=== PATIENT | male | born 1965 | race Caucasian/White ===

== ENCOUNTER 2019-09-13 15:33 | Outpatient (CLI) | payer MEDICARE, SELFPAY ==
[2019-09-13 15:58] LABS: Add Urine Microscopic? YES; Appearance Urine Clear (Clear); Bilirubin Urine Negative (Negative); Blood Urine Negative (Negative); Color Urine Straw (Yellow); Glucose Urine UA Negative (Negative); Ketones Urine Negative (Negative); Leukocyte Esterase Ur 1+ LEU/UL (NEGATIVE); Nitrate Urine Negative (Negative); Protein Urine Negative (Negative); RBC Urine 0-2 /hpf (0-2); Specific Grav Ur 1.011 (1.001-1.035); Squamous Epithelial Cell Urine Occasional /hpf (Few); Urobilinogen Urine Negative mg/dL (<2.0)
== END 2019-09-13 15:34 | disposition home or self-care (01) ==
LOC: ANHLAB 15:36
PROVIDERS: PCP Family Medicine; Visit Provider Family Medicine
DX: N39.0 Urinary tract infection, site not specified (principal)
CPT/HCPCS: 81001; 87086; 87088

== ENCOUNTER 2020-05-01 14:02 | Outpatient (CLI) | payer MEDICARE, SELFPAY ==
[2020-05-01 14:52] LABS: Basophils Percent Auto 0.8 % (0.2-1.2); Eosinophils Absolute Auto 0.2 K/mm3 (0-0.3); Hematocrit 35.6 % (42.0-52.0); Hemoglobin 10.8 g/dL (14.0-18.0); Immature Granulocyte Absolute 0.01 K/mm3 (0.00-0.031); Immature Granulocyte Percent A 0.2 % (0-0.5); Lymphocytes Percent Auto 29.2 % (18.3-44.2); Mean Corpuscular HGB Conc 30.3 g/dl (32-36); Mean Corpuscular Hemoglobin 25.2 pg (26-34); Mean Platelet Volume 10.3 fl (7.4-10.4); Monocytes Absolute Auto 0.6 K/mm3 (0.1-0.6); Monocytes Percent Auto 13.1 % (2.6-8.5); Neutrophils Absolute Auto 2.5 K/mm3 (1.3-6.7); Neutrophils Percent Auto 51.7 % (45.5-73.1); Platelet Count Result 276 k/mm3 (150-375); Red Blood Count 4.29 M/mm3 (4.6-6.20); Red Cell Distribution Width 13.4 % (11.5-14.5); White Blood Count 4.8 K/mm3 (4.5-10.0)
[2020-05-01 14:59] LABS: Alanine Aminotransferase 18 U/L (4-50); Alkaline Phosphatase 89 U/L (38-126); Anion Gap 7 mmol/L (8-16); Aspartate Amino Transferase 25 U/L (17-59); Bilirubin,Total 0.2 mg/dL (0.2-1.3); Blood Urea Nitrogen 14 mg/dL (9-20); Calcium 9.5 mg/dL (8.4-10.2); Carbon Dioxide 33 mmol/L (22-30); Chloride 102 mmol/L (98-107); Cholesterol 159 mg/dL (0-200); Estimated Glomerular Filt Rate > 60; Glucose 95 mg/dL (75-110); HDL Direct 33 mg/dL; Potassium 4.2 mmol/L (3.4-5.0); Sodium 142 mmol/L (137-145); Triglycerides 106 mg/dL (<150)
[2020-05-01 15:10] LABS: LDL Cholesterol Direct 102 mg/dL
== END 2020-05-01 14:03 | disposition home or self-care (01) ==
PROVIDERS: PCP Family Medicine; Visit Provider Physician Assistant
DX: J45.909 Unspecified asthma, uncomplicated (principal); K21.9 Gastro-esophageal reflux disease without esophagitis; D64.9 Anemia, unspecified; E78.2 Mixed hyperlipidemia
CPT/HCPCS: 36415; 80053; 80061; 85025

== ENCOUNTER 2020-05-31 15:11 | Outpatient (CLI) | payer MEDICARE, SELFPAY ==
--- NOTE | ~2020-05-31 | XR_ITS ---
XR chest 2V 05/31/2020 15:33 Indication: Cough for one week. Shortness of breath. Procedure: 2 view chest Comparison: No prior studies for comparison. Findings: Heart size normal. Moderate size hiatal hernia. There are linear infiltrates of the right m iddle lobe. No peripheral consolidation, pleural effusion or pneumothorax. The lungs are hyperinflate d which is consistent with, but not diagnostic of chronic obstructive pulmonary disease. There are coates rgical fusion changes of the midthoracic spine. Impression: 1: Linear infiltrates of the right middle lobe, most likely atelectasis/scarring. 2: Moderate size hiatal hernia. Reviewed, dictated and finalized at location A. Impression: 1: Linear infiltrates of the right middle lobe, most likely atelectasis/scarrin g. 2: Moderate size hiatal hernia.
== END 2020-05-31 15:12 | disposition home or self-care (01) ==
PROVIDERS: PCP Family Medicine; Visit Provider Family Medicine
DX: R05 Cough (principal); K44.9 Diaphragmatic hernia without obstruction or gangrene; R91.8 Other nonspecific abnormal finding of lung field
CPT/HCPCS: 71046

== ENCOUNTER 2020-06-03 06:52 | Outpatient (NON) | payer MEDICARE, SELFPAY ==
[2020-06-05 18:20] LABS: SARS-CoV-2 RNA PCR Positive
== END 2020-06-03 06:53 ==
PROVIDERS: PCP Family Medicine; Visit Provider Family Medicine
DX: U07.1 COVID-19 (principal)
CPT/HCPCS: 87635; C9803; U0003

== ENCOUNTER 2021-04-23 16:51 | Outpatient (CLI) | payer OTHER, SELFPAY ==
[2021-04-23 18:17] LABS: Add Urine Microscopic? YES; Appearance Urine Clear (Clear); Bilirubin Urine Negative (Negative); Blood Urine Negative (Negative); Color Urine Yellow (Yellow); Glucose Urine UA Negative (Negative); Ketones Urine Negative (Negative); Leukocyte Esterase Ur Trace LEU/UL (Negative); Nitrate Urine Negative (Negative); Protein Urine Negative (Negative); RBC Urine 0-2 /hpf (0-2); Specific Grav Ur 1.016 (1.001-1.035); Squamous Epithelial Cell Urine Occasional /hpf (Few); Urobilinogen Urine Negative mg/dL (<2.0)
== END 2021-04-23 16:52 | disposition home or self-care (01) ==
LOC: ANHLAB 16:53
PROVIDERS: PCP Family Medicine; Visit Provider Family Medicine
DX: R35.0 Frequency of micturition (principal); R30.0 Dysuria
CPT/HCPCS: 81001; 87086; 87088

== ENCOUNTER 2021-05-23 16:00 | Outpatient (CLI) | payer OTHER, SELFPAY ==
[2021-05-23 16:30] LABS: Basophils Percent Auto 0.6 % (0.2-1.2); Eosinophils Absolute Auto 0.3 K/mm3 (0-0.3); Eosinophils Percent Auto 5.3 % (0-4.4); Hematocrit 34.1 % (42.0-52.0); Hemoglobin 9.8 g/dL (14.0-18.0); Immature Granulocyte Absolute 0.01 K/mm3 (0.00-0.031); Immature Granulocyte Percent A 0.2 % (0-0.5); Lymphocytes Absolute Auto 1.82 K/mm3 (0.9-3.2); Lymphocytes Percent Auto 38.4 % (18.3-44.2); Mean Corpuscular HGB Conc 28.7 g/dl (32-36); Mean Corpuscular Hemoglobin 22.7 pg (26-34); Mean Corpuscular Volume 79.1 fl (80-100); Mean Platelet Volume 10.3 fl (7.4-10.4); Monocytes Absolute Auto 0.5 K/mm3 (0.1-0.6); Monocytes Percent Auto 9.5 % (2.6-8.5); Neutrophils Absolute Auto 2.2 K/mm3 (1.3-6.7); Platelet Count Result 279 k/mm3 (150-375); Red Blood Count 4.31 M/mm3 (4.6-6.20); Red Cell Distribution Width 15.3 % (11.5-14.5); White Blood Count 4.7 K/mm3 (4.5-10.0)
[2021-05-23 16:39] LABS: Add Urine Microscopic? YES; Appearance Urine Clear (Clear); Bilirubin Urine Negative (Negative); Color Urine Straw (Yellow); Glucose Urine UA Negative (Negative); Ketones Urine Negative (Negative); Leukocyte Esterase Ur 3+ LEU/UL (Negative); Nitrate Urine Negative (Negative); Protein Urine Negative (Negative); Specific Grav Ur 1.011 (1.001-1.035); Squamous Epithelial Cell Urine Few /hpf (Few); Urobilinogen Urine Negative mg/dL (<2.0); WBC Urine 51-75 /hpf
[2021-05-23 16:40] LABS: Blood Urine Negative (Negative)
[2021-05-23 16:47] LABS: Alanine Aminotransferase 16 U/L (4-50); Albumin Level 3.9 g/dL (3.5-5.1); Alkaline Phosphatase 92 U/L (38-126); Anion Gap 7 mmol/L (8-16); Aspartate Amino Transferase 25 U/L (17-59); Bilirubin,Total 0.3 mg/dL (0.2-1.3); Blood Urea Nitrogen 15 mg/dL (9-20); Calcium 9.1 mg/dL (8.4-10.2); Carbon Dioxide 30 mmol/L (22-30); Chloride 104 mmol/L (98-107); Cholesterol 171 mg/dL (0-200); Estimated Glomerular Filt Rate > 60; Glucose 89 mg/dL (65-110); HDL Direct 35 mg/dL; Potassium 3.8 mmol/L (3.4-5.0); Sodium 141 mmol/L (137-145); Triglycerides 103 mg/dL (<150)
[2021-05-23 16:58] LABS: LDL Cholesterol Direct 97 mg/dL
[2021-05-23 17:17] LABS: Prostate Specific Antigen 0.8 ng/mL (< OR = 4.0)
== END 2021-05-23 16:01 | disposition home or self-care (01) ==
PROVIDERS: PCP Family Medicine; Visit Provider Physician Assistant
DX: R30.0 Dysuria (principal); I10 Essential (primary) hypertension; R35.0 Frequency of micturition; R35.1 Nocturia; Z13.220 Encounter for screening for lipoid disorders; D64.9 Anemia, unspecified; K21.9 Gastro-esophageal reflux disease without esophagitis
CPT/HCPCS: 36415; 80053; 80061; 81001; 84153; 85025; 87077; 87086; 87088; 87186

== ENCOUNTER → 2021-05-30 08:35 | Outpatient (CLI) | payer OTHER, SELFPAY ==
--- NOTE | ~2021-05-30 | CT_ITS ---
EXAMINATION: CT abdomen pelvis wo con EXAM DATE: 05/30/2021 09:05 INDICATION: R30.0 - Dysuria . TECHNIQUE: Spiral CT of the abdomen and pelvis was performed without contrast. Axial, coronal and s agittal images of the abdomen and pelvis were reviewed. The dose-length product (DLP) for this exami nation was 1001.16 mGy-cm. The exposure was tailored according to patient size (auto mA exposure con trol), and iterative reconstruction (ASIR) was used as additional dose reduction technique. There is no prior study for comparison. FINDINGS: The liver, spleen, adrenal glands and pancreas are unremarkable. Gallbladder is unremark able. No biliary obstruction. There is no nephrolithiasis or hydronephrosis. The prostate is unre markable. The bladder is unremarkable. There is no retroperitoneal or pelvic lymphadenopathy. Tin y umbilical fat-containing hernia. IVC filter, collapsed IVC below this. The appendix is normal. There is moderate-sized gastroesophageal hiatal hernia. There is expected a mount of colonic stool. No free intraperitoneal gas. The heart is normal in size. There are no p ericardial or pleural effusions. The lung bases are unremarkable. Large expansile region to the rig ht iliac bone anteriorly measuring about 7 cm, smaller region of the left iliac bone and of the proxi mal femoral diaphyses bilaterally. 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 Mild lumbar levoscoliosis. Right hip joint effusion. IMPRESSION: 1. No acute intra-abdominal findings. Unremarkable genitourinary system. 2. 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 3. Moderate hiatal hernia. Reviewed, dictated and finalized at location B.
== END ==
PROVIDERS: PCP Family Medicine; Visit Provider Physician Assistant
DX: R30.0 Dysuria (principal); R35.0 Frequency of micturition; N31.2 Flaccid neuropathic bladder, not elsewhere classified; R14.0 Abdominal distension (gaseous); K44.9 Diaphragmatic hernia without obstruction or gangrene
CPT/HCPCS: 74176

== ENCOUNTER → 2021-08-05 02:31 | Outpatient (CLI) | payer OTHER, SELFPAY ==
[2021-08-05 20:10] LABS: SARS-CoV-2 RNA PCR Positive
== END ==
PROVIDERS: PCP Family Medicine; Visit Provider Internal Medicine Gastroenterology
DX: Z01.812 Encounter for preprocedural laboratory examination (principal); Z20.822 Contact with and (suspected) exposure to COVID-19
CPT/HCPCS: C9803; U0003; U0005

== ENCOUNTER 2021-09-11 10:15 | Day surgery (SDC) | payer OTHER, SELFPAY ==
[2021-07-21 15:25] VITALS: BMI 29.5
[2021-09-09 14:09] VITALS: BMI 29.5
[2021-09-11 10:43] VITALS: BP 124/73; PULSE 81; RESP 18; TEMP 36.6; O2SAT 100
[2021-09-11] MEDS: LACTATED RINGERS 1,000 ML 150 ML IV CONT (10:52)
--- NOTE | 2021-09-11 10:58 | WPDGICN ---
Assessment and Plan Assessment and plan (1) Iron deficiency anemia: Code(s): D50.9 - Iron deficiency anemia, unspecified Status: Acute Assessment and Plan: EGD with possible biopsy or dilatation or cautery.Colonoscopy with possible biopsy or polypectomy or cautery or injection of substances. (2) Presence of IVC filter: Code(s): Z95.828 - Presence of other vascular implants and grafts Status: Acute Assessment and Plan: history of DVTs. Not currently anticoagulated (3) Paraplegia following spinal cord injury: Code(s): G82.20 - Paraplegia, unspecified Status: Acute Assessment and Plan: accident 13 years ago (4) COVID-19: Code(s): U07.1 - COVID-19 Status: Acute Assessment and Plan: developing COVID forced him to cancel his last procedure. He has fully recovered. COVID RNA was positive in June and again on August 05 GI Consult Note Consult date/time: 09/11/21 10:58 HPI: Esvin Miller is a 56 year old male known paraplegic who has become progressively anemic. He had hemoglobin of 12 2 years ago. In April of 2020 it was 10.8, and last May it was 9.8. MCV is also somewhat low at 79. he had a colonoscopy and polypectomy about 6 or 7 years ago. There has been no obvious bleeding. He has been paraplegic since an accident 13 years ago. He has been on oral iron almost continuously since then. He is not aware of any family history of anemia or gastrointestinal diseases. He does not take NSAIDs regularly. He has had several bouts of urinary tract infections. Recently, when he was scheduled for this procedure, he developed COVID Review of Systems Review of Systems: All systems reviewed & are unremarkable except as noted in HPI and below PMFSH Past Medical History Medical History Asthma Atonic neurogenic bladder Chronic anemia Chronic wound of extremity Dry skin dermatitis DVT (deep venous thrombosis) RLE Exostosis of femur GERD (gastroesophageal reflux disease) Muscle spasms of both lower extremities Other fracture of t5-T6 vertebra, sequela Paraplegia at T4 level Paraplegia following spinal cord injury Pathological fracture, right femur, subsequent encounter for fracture with malunion Presence of IVC filter Recent surgical procedure on lower extremity Recurrent UTI Ulcers of both lower extremities Family History Family History Other Family history of gout Hypertension Social History Social History Social History: Smoking status: Never smoker Second hand tobacco smoke exposure: No Alcohol intake: current Drinks per week: 1 Alcohol use details: occasionally Substance use: current Substance use type: marijuana Living arrangements: with family Occupation/Education: unemployed Additional occupation/education comments: Disabled Gender identity (if verbalized by the patient): Male Sexual Orientation (if Verbalized by the Patient): Straight or Heterosexual Spiritual care concerns: No Meds Home Medications and Allergies Home Medications Medication Instructions Recorded Confirmed Type sennosides-docusate sodium 1 tablet PO BID PRN 06/01/19 08/19/21 History pregabalin 100 mg capsule 200 mg PO TID cap 08/25/19 08/19/21 History azelastine 137 mcg (0.1 %) nasal 137 mcg NASAL Q12H #30 ml 09/29/19 08/19/21 Rx spray aerosol diazepam 5 mg tablet 5 mg PO BID PRN 05/01/20 08/19/21 History furosemide 20 mg tablet 20 mg PO DAILY #90 tablet 10/29/20 08/19/21 Rx polysaccharide iron complex 150 mg See Rx Instructions .ROUTE 06/23/21 08/19/21 Rx iron capsule .COMPLEX #60 cap tolterodine 4 mg capsule,extended 4 mg PO DAILY #90 cap 08/19/21 09/09/21 Rx release 24 hr budesonide-formoterol HFA 160 2 puff INHALATION Q12H #10
--- NOTE | 2021-09-11 11:13 | WPDANESEPPF ---
Anes - Initial Pre Proc Eval Procedure: Operation Date: 09/11/21 12:00 Proposed Procedures p Esophagogastroduodenoscopy & Colonoscopy - Ashish Shoemaker MD Date/Time: 09/11/21 11:13 Surgeon: Ashish Shoemaker MD Pre Op Diagnosis: anemia Patient Data Age: 56 Gender: M Height: 1.88 m Weight: 106 kg Last Vital Signs Temp 97.9 F 09/11/21 10:43 Pulse 81 09/11/21 10:43 Resp 18 09/11/21 10:43 BP 124/73 09/11/21 10:43 Pulse Ox 100 09/11/21 10:43 Allergies Allergy/AdvReac Type Severity Reaction Status Date / Time aspirin Allergy Mild SOB Verified 09/11/21 10:41 Sulfa (Sulfonamide Allergy Mild hives Verified 09/11/21 10:41 Antibiotics) latex AdvReac Rash Verified 09/11/21 10:41 Home Medications Medication Instructions Recorded Confirmed Type sennosides-docusate sodium 1 tablet PO BID PRN 06/01/19 08/19/21 History pregabalin 100 mg capsule 200 mg PO TID cap 08/25/19 08/19/21 History azelastine 137 mcg (0.1 %) nasal 137 mcg NASAL Q12H #30 ml 09/29/19 08/19/21 Rx spray aerosol diazepam 5 mg tablet 5 mg PO BID PRN 05/01/20 08/19/21 History furosemide 20 mg tablet 20 mg PO DAILY #90 tablet 10/29/20 08/19/21 Rx polysaccharide iron complex 150 mg See Rx Instructions .ROUTE 06/23/21 08/19/21 Rx iron capsule .COMPLEX #60 cap tolterodine 4 mg capsule,extended 4 mg PO DAILY #90 cap 08/19/21 09/09/21 Rx release 24 hr budesonide-formoterol HFA 160 2 puff INHALATION Q12H #10.2 g 09/03/21 09/09/21 Rx mcg-4.5 mcg/actuation aerosol inhaler Patient hx anesthesia problems: none Family hx anesthesia problems: none Results Review: All pre-operative results and documents have been reviewed as part of the pre-operative evaluation. [facility] Past Medical History Medical History Asthma Atonic neurogenic bladder Chronic anemia Chronic wound of extremity Dry skin dermatitis DVT (deep venous thrombosis) RLE Exostosis of femur GERD (gastroesophageal reflux disease) Muscle spasms of both lower extremities Other fracture of t5-T6 vertebra, sequela Paraplegia at T4 level Paraplegia following spinal cord injury Pathological fracture, right femur, subsequent encounter for fracture with malunion Presence of IVC filter Recent surgical procedure on lower extremity Recurrent UTI Ulcers of both lower extremities Family History Family History Other Family history of gout Hypertension Social History Social History (Updated 08/19/21 @ 15:05 by Jossy Garcia) Social History: Smoking status: Never smoker Second hand tobacco smoke exposure: No Alcohol intake: current Drinks per week: 1 Alcohol use details: occasionally Substance use: current Substance use type: marijuana Living arrangements: with family Occupation/Education: unemployed Additional occupation/education comments: Disabled Gender identity (if verbalized by the patient): Male Sexual Orientation (if Verbalized by the Patient): Straight or Heterosexual Spiritual care concerns: No Anes - Eval Final PreProcedure Day of Procedure 09/11/21 11:13 Patient weight: obese Heart: regular rate and rhythm Lungs: clear to auscultation Airway: Mallampati scale class II Neurological: alert and oriented Last oral intake: >/= 8 hours ASA classification: III Emergent: no Anesthetic plan: proceed Anesthesia type and monitoring: general GIVS and standard monitoring Results Review: All pre-operative results and documents have been reviewed as part of the pre-operative evaluation. Informed Consent: The patient's anesthetic plan and its attendant risks and benefits were discussed with the patient/family/POA. Questions were solicited and answers provided to the satisfaction of the patient/family/POA.
[2021-09-11] MEDS: BENZOCAINE (*SP) 60 ML SPRAY CAN (HURRICAINE) 1 SPRAY MUCOUS MEM (11:44)
--- NOTE | 2021-09-11 12:09 | SUR.OPER ---
EGD end 1157 COLONOSCOPY START 1200
[2021-09-11 12:21] VITALS: BP 118/96; PULSE 64; RESP 17; O2SAT 98
--- NOTE | 2021-09-11 12:29 | PC.NURSE ---
Several pressure ulcers noted. On heels and legs.
[2021-09-11 12:31] VITALS: BP 107/70; PULSE 67; RESP 19; O2SAT 100
[2021-09-11 12:41] VITALS: BP 117/79; PULSE 61; RESP 20; O2SAT 100
== END 2021-09-11 13:12 | disposition home or self-care (01) ==
LOC: ANHENDO 13:42
PROVIDERS: PCP Family Medicine; Visit Provider Internal Medicine Gastroenterology
PROC: 0DJ08ZZ Inspection of Upper Intestinal Tract, Via Natural or Artificial Opening Endoscopic (ICD-10-PCS; CPT 43235; principal; 2021-09-11 12:00)
DX: Z12.11 Encounter for screening for malignant neoplasm of colon (principal); Z86.010 Personal history of colon polyps; D50.9 Iron deficiency anemia, unspecified; K44.9 Diaphragmatic hernia without obstruction or gangrene; K31.7 Polyp of stomach and duodenum; K29.70 Gastritis, unspecified, without bleeding; G82.20 Paraplegia, unspecified; Z95.828 Presence of other vascular implants and grafts; Z86.16 Personal history of COVID-19; J45.909 Unspecified asthma, uncomplicated; Z86.718 Personal history of other venous thrombosis and embolism; D64.9 Anemia, unspecified; K21.9 Gastro-esophageal reflux disease without esophagitis; N39.0 Urinary tract infection, site not specified; F12.90 Cannabis use, unspecified, uncomplicated; E66.9 Obesity, unspecified; Z68.30 Body mass index [BMI] 30.0-30.9, adult
CPT/HCPCS: 43239; 43251; G0105; 87081; 88305; J2704; J7120

== ENCOUNTER 2022-04-24 16:39 | Outpatient (CLI) | payer OTHER, SELFPAY ==
--- NOTE | ~2022-04-24 | XR_ITS ---
XR heel LT min 2V DATE: 04/24/2022 17:01 INDICATION: Open wound TECHNIQUE: Axial and lateral views COMPARISON: 02/20/2019 right foot FINDINGS: There is evidence of a depression in the posterior soft tissues of the heel is an approxima tely 1 cm vertical scalloped defect along the upper posterior aspect of the calcaneus. Consider acute or chronic osteomyelitis, gout. Prominent plantar calcaneal enthesopathy. Tibiotalar osteoarthritis. Osteopenia. IMPRESSION: Soft tissue irregularity along the posterior aspect of the heel. Scalloped or punched-out defect of posterior upper calcaneus; different diagnosis includes acute or c hronic osteomyelitis, gout Plantar calcaneal enthesopathy Osteopenia Osteoarthritis Reviewed, dictated and finalized at location B. IMPRESSION: Soft tissue irregularity along the posterior aspect of the heel. Scalloped or punched-out defect of posterior upper calcaneus; different diagnos is includes acute or chronic osteomyelitis, gout Plantar calcaneal enthesopathy Osteopenia Osteoarthritis
== END 2022-04-24 16:40 | disposition home or self-care (01) ==
PROVIDERS: PCP Family Medicine; Visit Provider Physician Assistant
DX: S91.309A Unspecified open wound, unspecified foot, initial encounter (principal); X58.XXXA Exposure to other specified factors, initial encounter; M77.32 Calcaneal spur, left foot; M85.872 Other specified disorders of bone density and structure, left ankle and foot; M19.072 Primary osteoarthritis, left ankle and foot
CPT/HCPCS: 36415; 73650; 85652; 86140

== ENCOUNTER 2022-04-24 17:07 | Outpatient (CLI) | payer OTHER, SELFPAY ==
[2022-04-24 17:40] LABS: CRP 1.9 mg/dL (<1.0)
[2022-04-24 17:44] LABS: Erythrocyte Sedimentation Rate 87 mm/hr (0-20)
== END 2022-04-24 17:08 | disposition home or self-care (01) ==
LOC: ANHLAB 17:09
PROVIDERS: PCP Family Medicine; Visit Provider Physician Assistant
DX: S91.309A Unspecified open wound, unspecified foot, initial encounter (principal); X58.XXXA Exposure to other specified factors, initial encounter
CPT/HCPCS: 36415; 85652; 86140

== ENCOUNTER 2023-01-22 14:20 | Outpatient (CLI) | payer OTHER, SELFPAY ==
--- NOTE | ~2023-01-22 | XR_ITS ---
XR chest 2V 01/22/2023 14:36 Indication: Shortness of breath Procedure: AP and lateral views of the chest Comparison: 05/31/2020 Findings: Heart size is normal. There is a hiatal hernia. There is right middle lobe atelectasis/scar ring. No focal pneumonia, edema or effusion. No pneumothorax. There are spinal fusion changes of the midthoracic spine. Impression: 1: Right middle lobe atelectasis/scarring. 2: Hiatal hernia. Reviewed, dictated and finalized at location [] Impression: 1: Right middle lobe atelectasis/scarring. 2: Hiatal hernia.
== END 2023-01-22 14:21 | disposition home or self-care (01) ==
PROVIDERS: PCP Family Medicine; Visit Provider Nurse Practitioner Gerontology
DX: J98.11 Atelectasis (principal); K44.9 Diaphragmatic hernia without obstruction or gangrene
CPT/HCPCS: 71046

== ENCOUNTER 2023-01-29 13:44 | Outpatient (CLI) | payer OTHER, SELFPAY ==
[2023-01-29 14:20] LABS: Basophils Percent Auto 0.7 % (0.2-1.2); Eosinophils Absolute Auto 0.2 K/mm3 (0-0.3); Eosinophils Percent Auto 4.4 % (0-4.4); Hematocrit 43.6 % (42.0-52.0); Hemoglobin 13.3 g/dL (14.0-18.0); Lymphocytes Absolute Auto 1.58 K/mm3 (0.9-3.2); Lymphocytes Percent Auto 38.7 % (18.3-44.2); Mean Corpuscular HGB Conc 30.5 g/dl (32-36); Mean Corpuscular Hemoglobin 26.4 pg (26-34); Mean Corpuscular Volume 86.7 fl (80-100); Mean Platelet Volume 10.9 fl (7.4-10.4); Monocytes Absolute Auto 0.4 K/mm3 (0.1-0.6); Monocytes Percent Auto 8.6 % (2.6-8.5); Neutrophils Absolute Auto 1.9 K/mm3 (1.3-6.7); Neutrophils Percent Auto 47.6 % (45.5-73.1); Platelet Count Result 214 k/mm3 (150-375); Red Blood Count 5.03 M/mm3 (4.6-6.20); Red Cell Distribution Width 14.7 % (11.5-14.5); White Blood Count 4.1 K/mm3 (4.5-10.0)
[2023-01-29 17:31] LABS: Iron 111 ug/dL (49-181)
[2023-01-29 17:32] LABS: Alanine Aminotransferase 23 U/L (6-50); Albumin Level 4.2 g/dL (3.5-5.1); Alkaline Phosphatase 86 U/L (38-126); Anion Gap 8 mmol/L (8-16); Aspartate Amino Transferase 28 U/L (17-59); Bilirubin,Total 0.3 mg/dL (0.2-1.3); Blood Urea Nitrogen 19 mg/dL (9-20); Calcium 9.4 mg/dL (8.4-10.2); Carbon Dioxide 29 mmol/L (22-30); Chloride 106 mmol/L (98-107); Estimated Glomerular Filt Rate > 60; Glucose 126 mg/dL (65-110); Potassium 3.9 mmol/L (3.4-5.0); Sodium 143 mmol/L (137-145)
[2023-01-29 17:40] LABS: Percent Iron Saturation 27 % (20-50)
[2023-01-29 18:03] LABS: Prostate Specific Antigen 0.9 ng/mL (< OR = 4.0)
[2023-02-02 14:29] LABS: Vitamin D 1,25 (OH)2 Total 17 pg/mL (18-72); Vitamin D2 1,25 (OH)2 <8 pg/mL; Vitamin D3 1,25 (OH)2 17 pg/mL
== END 2023-01-29 13:45 | disposition home or self-care (01) ==
PROVIDERS: PCP Family Medicine; Visit Provider Nurse Practitioner Gerontology
DX: E55.9 Vitamin D deficiency, unspecified (principal); D64.9 Anemia, unspecified; G82.20 Paraplegia, unspecified; R06.02 Shortness of breath; Z12.5 Encounter for screening for malignant neoplasm of prostate
CPT/HCPCS: 36415; 80053; 82652; 83540; 83550; 84153; 84443; 85025; G0103

== ENCOUNTER 2023-02-06 14:52 | Emergency (ER) | payer OTHER, SELFPAY ==
--- NOTE | ~2023-02-06 | US_ITS ---
EXAMINATION: US venous doppler [facility] DATE: 02/06/2023 15:26 INDICATION: left leg swelling, eval for DVT . TECHNIQUE: Grayscale images without and with compression and Doppler images of the left lower extremi ty veins were obtained. COMPARISON: None FINDINGS: Poor visualization of the peroneal and posterior tibial veins. The left common femoral vein, profunda (deep) femoral vein, femoral vein, popliteal vein, gastrocnemius vein, and greater saphenous vein a re patent. Extensive subcutaneous edema. IMPRESSION: 1. Poor visualization of the peroneal and posterior tibial veins due to leg swelling. 2. Otherwise patent left lower extremity veins. No evidence of deep venous thrombosis in the visualiz ed veins. Reviewed, dictated and finalized at location K. IMPRESSION: 1. Poor visualization of the peroneal and posterior tibial veins due to leg sw elling. 2. Otherwise patent left lower extremity veins. No evidence of deep venous thro mbosis in the visualized veins.
[2023-02-06 14:58] VITALS: BP 126/86; PULSE 100; RESP 18; TEMP 36.4; O2SAT 98
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
[2023-02-06 16:05] LABS: Basophils Percent Auto 0.4 % (0.2-1.2); Eosinophils Absolute Auto 0.1 K/mm3 (0-0.3); Eosinophils Percent Auto 0.9 % (0-4.4); Hematocrit 39.8 % (42.0-52.0); Hemoglobin 12.3 g/dL (14.0-18.0); Immature Granulocyte Absolute 0.02 K/mm3 (0.00-0.031); Immature Granulocyte Percent A 0.3 % (0-0.5); Lymphocytes Absolute Auto 1.38 K/mm3 (0.9-3.2); Lymphocytes Percent Auto 19.7 % (18.3-44.2); Mean Corpuscular HGB Conc 30.9 g/dl (32-36); Mean Corpuscular Hemoglobin 26.7 pg (26-34); Mean Corpuscular Volume 86.5 fl (80-100); Mean Platelet Volume 10.1 fl (7.4-10.4); Monocytes Absolute Auto 0.6 K/mm3 (0.1-0.6); Monocytes Percent Auto 7.9 % (2.6-8.5); Neutrophils Percent Auto 70.8 % (45.5-73.1); Platelet Count Result 200 k/mm3 (150-375); Red Cell Distribution Width 15.3 % (11.5-14.5)
[2023-02-06 16:15] LABS: Alanine Aminotransferase 31 U/L (6-50); Albumin Level 3.8 g/dL (3.5-5.1); Alkaline Phosphatase 73 U/L (38-126); Anion Gap 7 mmol/L (8-16); Aspartate Amino Transferase 39 U/L (17-59); Bilirubin,Total 0.4 mg/dL (0.2-1.3); Blood Urea Nitrogen 11 mg/dL (9-20); Calcium 8.8 mg/dL (8.4-10.2); Carbon Dioxide 30 mmol/L (22-30); Chloride 102 mmol/L (98-107); Estimated CRCL calculation 117 ml/min; Estimated Glomerular Filt Rate > 60; Glucose 104 mg/dL (65-110); Potassium 3.1 mmol/L (3.4-5.0); Sodium 139 mmol/L (137-145)
[2023-02-06 16:16] LABS: Lactic Acid Reflex 1.8 mmol/L (0.7-2.0)
[2023-02-06] MEDS: SODIUM CHLORIDE 0.9% IV 1,000 ML 999 ML IV CONT (16:19)
[2023-02-06] MEDS: CLINDAMYCIN 450 MG in DEXTROSE 5% IN WATER 50 ML 106 MG IVPB (16:49)
[2023-02-06 16:52] VITALS: BP 103/60; PULSE 82; RESP 18; TEMP 36.4; O2SAT 96
[2023-02-06 17:16] LABS: Appearance Urine Clear (Clear); Bacteria Urine None Seen /hpf; Bilirubin Urine Negative (Negative); Blood Urine Negative (Negative); Color Urine Dark Yellow (Yellow); Glucose Urine UA Negative (Negative); Hyaline Casts Urine Present /lpf; Ketones Urine Negative (Negative); Leukocyte Esterase Ur 1+ LEU/UL (Negative); Nitrate Urine Negative (Negative); Protein Urine Trace mg/dL (Negative); RBC Urine 0-2 /hpf (0-2); Specific Grav Ur 1.022 (1.001-1.035); Squamous Epithelial Cell Urine Few /hpf (Few); pH Urine 5.5 (5.0-9.0)
[2023-02-06 17:17] LABS: Add Urine Microscopic? YES
[2023-02-06] MEDS: POTASSIUM CHLORIDE 20 MEQ ER TABLET 40 MEQ PO (17:31)
[2023-02-06 17:39] VITALS: BP 119/79; PULSE 75; RESP 18; O2SAT 100
== END 2023-02-06 17:40 | disposition home or self-care (01) ==
PROVIDERS: Emergency Provider Emergency Medicine; PCP Family Medicine
DX: L03.116 Cellulitis of left lower limb (principal); E87.6 Hypokalemia; R82.998 Other abnormal findings in urine; G82.20 Paraplegia, unspecified; Z86.718 Personal history of other venous thrombosis and embolism
CPT/HCPCS: 36415; 80053; 81001; 83605; 85025; 87086; 87147; 87181; 87186; 93971; 96365; 96367; 99284; A9270; J0696; J7030

== ENCOUNTER 2023-02-18 13:17 | Outpatient (CLI) | payer OTHER, SELFPAY ==
--- NOTE | 2023-02-18 13:57 | PCRCNOTE ---
UNABLE TO DO PLETHYSMOGRAPHY DUE TO PT IN WHEELCHAIR AND WHEELCHAIR TOO LARGE TO CLOSE THE DOOR ON BODY BOX.
[2023-02-18 16:12] LABS: Alanine Aminotransferase 21 U/L (6-50); Albumin Level 3.7 g/dL (3.5-5.1); Alkaline Phosphatase 73 U/L (38-126); Anion Gap 8 mmol/L (8-16); Aspartate Amino Transferase 34 U/L (17-59); Bilirubin,Total 0.5 mg/dL (0.2-1.3); Blood Urea Nitrogen 12 mg/dL (9-20); Calcium 9.2 mg/dL (8.4-10.2); Carbon Dioxide 29 mmol/L (22-30); Chloride 102 mmol/L (98-107); Estimated Glomerular Filt Rate > 60; Glucose 103 mg/dL (65-110); Potassium 4.5 mmol/L (3.4-5.0); Sodium 139 mmol/L (137-145)
--- NOTE | 2023-02-19 06:56 | WPDPFTINT ---
PFT Procedure Performed PFT Procedure Performed Diffusing Cap (DLCO) Flow Vol Loop Spirometry w/o Bronchodil PFT Interpretation This is a pulmonary function test with spirometry and diffusing capacity. The test was performed and results interpreted in accordance with the 2019 and 2005 ATS/ERS Task Force guidelines respectively using the Global Lung Function Initiative-2012 reference equations. Patient demonstrated good effort and cooperation. Reproducibility criteria were met. The quality of the spirometry maneuver was Grade A. Of note plethysmography was not performed as the patient was in a wheelchair and the wheelchair was too large to close the door to the plethysmography chamber. Findings: Spirometry: There is decrease maximal expiratory airflow at all lung volumes with concave expiratory flow tracing. The contour the inspiratory flow tracing is normal. The FVC is 3.69 L, 68% predicted. The FEV1 is 2.48 L, 59% predicted. The FEV1: FVC ratio 67%. Diffusing capacity: The diffusing capacity unadjusted for hemoglobin and carboxyhemoglobin is 24.5, 79% predicted. The diffusing capacity adjusted for alveolar volume is 4.69, 114% predicted. Impression: There is a moderately severe obstructive abnormality. A concurrent restrictive abnormality cannot be excluded as lung volumes were unable to be measured. The diffusing capacity is normal. There are no prior studies for comparison
== END 2023-02-18 13:18 | disposition home or self-care (01) ==
PROVIDERS: Physician Assistant; PCP Family Medicine; Visit Provider Nurse Practitioner Gerontology
DX: E87.6 Hypokalemia (principal); R06.02 Shortness of breath; R94.2 Abnormal results of pulmonary function studies
CPT/HCPCS: 36415; 80053; 94375; 94729

== ENCOUNTER 2023-04-26 09:20 | Outpatient (CLI) | payer OTHER, SELFPAY ==
--- NOTE | 2023-04-26 09:39 | ECHO_ITS ---
Patient Info Name: Esvin Miller Age: 57 years : 1965 Gender: Male Ht: 74 in Wt: 235 lbs BSA: 2.38 m2 HR: 67 bpm BP: 121 / 62 mmHg Heart Rhythm: Sinus Rhythm Technical Quality: Fair Exam Date: 04/26/2023 10:00 AM Exam Location: [facility] Pulmonary Patient Status: Outpatient Admit Date: 04/26/2023 Staff Ordering Physician: Bony Rivas DO [employer] Labourer: Margarita Bhatia RDCS Attending Provider: Bony Rivas DO Referring Physician: Rob BRODERICK; Exam Type: CA echo dop color flow w con Study Info Indications R06.02 - Shortness of breath Complete two-dimensional, color flow and Doppler transthoracic echocardiogram is performed with contrast to opacify the left ventricle and to improve the deliniation of the left ventricle endocardial borders. Contrast/Agitated Saline Contrast/Ag. Saline: Definity Amount: 3.00 ml Administered By: Margarita Bhatia RDCS New IV Access: Left Site Condition: IV removed Summary 1. Definity contrast administered improved wall motion interpretation. 2. Left ventricular chamber dimension is normal. 3. Left ventricular systolic function is normal, estimated at 60-65%. 4. There is mild concentric increased left ventricular wall thickness. 5. The left ventricular diastolic function is abnormal. 6. E/e' 10 is mildly elevated. 7. There is mild aortic valve sclerosis. 8. No pulmonary hypertension, estimated pulmonary arterial systolic pressure is 21 mmHg. Left Ventricle E/e' 10 is mildly elevated. Definity contrast administered improved wall motion interpretation. Left ventricular chamber dimension is normal. Left ventricular systolic function is normal, estimated at 60-65%. There is mild concentric increased left ventricular wall thickness. The left ventricular diastolic function is abnormal. Right Ventricle Right ventricular chamber dimension is normal. Right ventricular systolic function is normal. Left Atria Left atrial chamber dimension is normal. Right Atria Right atrial chamber dimension is normal. Aortic Valve The aortic valve is trileaflet. There is mild aortic valve sclerosis. There is no aortic valve stenosis. There is no aortic valve regurgitation. Pulmonic Valve There is no pulmonic regurgitation. Mitral Valve There is no mitral valve stenosis. There is no mitral valve regurgitation. Tricuspid Valve There is no tricuspid valve regurgitation. No pulmonary hypertension, estimated pulmonary arterial systolic pressure is 21 mmHg. Pericardium/Pleural There is no pericardial effusion. Inferior Vena Cava Normal inferior vena cava with >50% collapse upon inspiration consistent with normal right atrial pressure, 5 mmHg. Aorta The aortic root size at the sinus of Valsalva is normal. Left Ventricular Outflow Tract Name Value Normal LVOT 2D LVOT Diameter 2.25 cm LVOT Doppler LVOT Peak Gradient 2 mmHg LVOT Mean Gradient 1 mmHg LVOT VTI 15.16 cm LVOT VTI/AV VTI Ratio 0.74 LVOT Stroke Volume 60.00 ml LVOT CO 4.19 l/mi
[2023-04-26] MEDS: PERFLUTREN LIPID MICROSPHERES 1.5 ML VIAL DILUTED TO 10 ML TOTAL VOLUME IV PUSH (10:30)
--- NOTE | 2023-04-26 12:17 | IVDEFINITY ---
Prior to administration of IV Definity the patient was educated on the risks and benefits of the imaging enhancing agent including potential adverse side effects. The patient verbalized understanding. Allergies were verified. No exclusion criteria were identified and at least one of the following inclusion criteria were met: 1) physician request, 2) patient technically difficult to image (per the [place] [employer]ocardi[employer] guidelines of two or more segments not discernable within the apical view), or 3) questionable left ventricular function. ?
== END 2023-04-26 09:21 | disposition home or self-care (01) ==
PROVIDERS: PCP Family Medicine; Visit Provider Internal Medicine Cardiovascular Disease
DX: R06.02 Shortness of breath (principal)
CPT/HCPCS: C8929; Q9957

== ENCOUNTER 2023-05-27 14:53 | Outpatient (CLI) | payer OTHER, SELFPAY ==
[2023-05-27 16:11] LABS: Appearance Urine Clear (Clear); Bacteria Urine None Seen /hpf; Bilirubin Urine Negative (Negative); Blood Urine Negative (Negative); Color Urine Yellow (Yellow); Glucose Urine UA Negative (Negative); Ketones Urine Negative (Negative); Leukocyte Esterase Ur 1+ LEU/UL (Negative); Nitrate Urine Negative (Negative); Non Pathogenic Casts 0-2; Protein Urine Negative (Negative); RBC Urine 0-2 /hpf (0-2); Specific Grav Ur 1.016 (1.001-1.035); Squamous Epithelial Cell Urine None seen /hpf (Few); Urobilinogen Urine 0.2 mg/dL (<2.0); pH Urine 6.5 (5.0-9.0)
[2023-05-27 16:20] LABS: Add Urine Microscopic? YES
== END 2023-05-27 14:54 | disposition home or self-care (01) ==
PROVIDERS: PCP Family Medicine; Visit Provider Physician Assistant
DX: N39.0 Urinary tract infection, site not specified (principal)
CPT/HCPCS: 81001; 87086; 87088

== ENCOUNTER 2024-04-17 16:51 | Outpatient (CLI) | payer OTHER, SELFPAY ==
[2024-04-17 17:18] LABS: Hematocrit 42.7 % (42.0-52.0); Hemoglobin 13.4 g/dL (14.0-18.0); Mean Corpuscular HGB Conc 31.4 g/dl (32-36); Mean Corpuscular Hemoglobin 26.1 pg (26-34); Mean Corpuscular Volume 83.1 fl (80-100); Mean Platelet Volume 10.1 fl (7.4-10.4); Platelet Count Result 190 k/mm3 (150-375); Red Blood Count 5.14 M/mm3 (4.6-6.20); Red Cell Distribution Width 17.7 % (11.5-14.5); White Blood Count 5.3 K/mm3 (4.5-10.0)
[2024-04-17 17:33] LABS: Alanine Aminotransferase 27 U/L (6-50); Albumin Level 4.2 g/dL (3.5-5.1); Alkaline Phosphatase 84 U/L (38-126); Anion Gap 7 mmol/L (4-12); Aspartate Amino Transferase 30 U/L (17-59); Bilirubin,Total 0.4 mg/dL (0.2-1.3); Blood Urea Nitrogen 16 mg/dL (9-20); Calcium 9.3 mg/dL (8.4-10.2); Carbon Dioxide 29 mmol/L (22-30); Chloride 102 mmol/L (98-107); Cholesterol 176 mg/dL (0-200); Estimated Glomerular Filt Rate > 60; Glucose 79 mg/dL (65-110); HDL Direct 39 mg/dL; Potassium 3.9 mmol/L (3.4-5.0); Sodium 138 mmol/L (137-145); Triglycerides 87 mg/dL (<150)
[2024-04-17 17:44] LABS: LDL Cholesterol Direct 111 mg/dL
[2024-04-20 15:14] LABS: PSA, Free 0.1 ng/mL; PSA, Total 1.2 ng/mL (< OR = 4.0); Percent Free Prostate Spec Ag 8 % (calc) (>25)
[2024-04-28 13:39] LABS: Vitamin D 1,25 (OH)2 Total 15 pg/mL (18-72); Vitamin D2 1,25 (OH)2 <8 pg/mL; Vitamin D3 1,25 (OH)2 15 pg/mL
== END 2024-04-17 16:52 | disposition home or self-care (01) ==
PROVIDERS: Physician Assistant; PCP Family Medicine; Visit Provider Student in an Organized Health Care Education/Training Program
DX: E55.9 Vitamin D deficiency, unspecified (principal); Z13.220 Encounter for screening for lipoid disorders; Z83.42 Family history of familial hypercholesterolemia; D50.9 Iron deficiency anemia, unspecified; R06.02 Shortness of breath; I51.89 Other ill-defined heart diseases; Z12.5 Encounter for screening for malignant neoplasm of prostate
CPT/HCPCS: 36415; 80053; 80061; 82652; 84153; 84154; 85027; G0103

== ENCOUNTER 2024-09-06 16:06 | Outpatient (CLI) | payer OTHER, SELFPAY ==
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
--- OUTSIDE RECORDS SUMMARY | 2024-09-06 16:13 | XMS_ITS | Patient Health Summary ---
Author Organization [facility] Address [address] [place] [address] Care Team Providers Care Manager Deli Name Role Phone Khanh Alvarado TOM-INFRASTRUCTURE DIRECTOR Unavailable Jess Rm MD Unavailable [phone] Jossy Sanchez MD Unavailable Mary Huston MD Primary Care Provider + Note from [facility] [place]non-owned Affiliates and Associated Physician Practices is amultiple site organization consisting of ambulatory clinics and hospital sitesin [place], [place], [place] and [place]. This disclosure is being madepursuant to the Care Everywhere program and may not contain all information available regarding this patient. Last updated 18.[facility] Allergies * Aspirin(Unknown) * Sulfamethoxazole W-Trimethoprim(Rash) -Low Criticality * Latex(Rash) -Low Criticality Medications * Be aware that medications may not be up to date on this document. Alwaysverify current medications with the patient. * CENTRUM ULTRA MENS PO Take by mouth. * Calcium-Vitamin D (OSCAL 500/200 D-3) 500 MG TABS Take by mouth. * Docusate Sodium (DOC-Q-LACE PO) Take 100 mg by mouth 2 times daily. * ferrous sulfate (FEOSOL) 45 MG tablet * vitamin D2 (ERGOCALCIFEROL) 41853 UNIT capsule Take 1 Cap by mouth every 7 days. * lansoprazole, disintegrating, (PREVACID SOLUTAB) 30 MG tablet Take 30 mg by mouth daily before breakfast. * Loratadine (ALAVERT PO) Take 5 mg by mouth as needed. * pregabalin (LYRICA) 150 MG capsule Take 150 mg by mouth 3 times daily * potassium chloride (KLOR-CON 10) 10 MEQ tablet(Started 04/19/2017) Take 1 Tab by mouth once daily as needed 3 refills remaining * albuterol HFA (PROVENTIL;VENTOLIN;PROAIR) 108 (90 BASE) MCG/ACT inhaler (Started 08/13/2017) Inhale 2 puffs by mouth every 6 hours as needed 2 refills remaining * ciprofloxacin 0.3% (CILOXAN) 0.3 % ophthalmic solution(Started 09/27/2017) 1 drop every 2 hours * baclofen (LIORESAL) 10 MG tablet(Started 02/07/2018) 4 refills left * meloxicam (MOBIC) 15 MG tablet(Started 02/08/2018) * diazePAM (VALIUM) 5 MG tablet(Started 12/29/2017) 4 refills left * SANTYL 250 UNIT/GM ointment(Started 02/05/2018) 2 refills left * doxycycline hyclate (VIBRAMYCIN) 100 MG tablet(Started 02/17/2019) Take 1 tablet by mouth 2 times daily * furosemide (LASIX) 20 MG tablet(Started 08/30/2019) TAKE ONE TABLET BY MOUTH ONCE DAILY NEEDED 2 refills by 08/29/2020 * TOVIAZ 8 MG tablet(Started 01/31/2020) TAKE 1 TABLET BY MOUTH EVERY DAY Active Problems Problem Noted Date Diagnosed Date Suspected UTI 02/17/2019 Paraplegia following spinal cord injury 01/20/20 17 T6 spinal cord injury 10/22/2015 Frequent UTI 10/22/2015 Self-catheterizes urinary bladder 10/22/2015 History of DVT (deep vein thrombosis) 10/22/2015 Asthma 06/03/2009 Seasonal allergies 06/03/2009 GERD (gastroesophageal [...] CDT Respiratory Rate 18 06/11/2015 8:59 AM SMELTER CHARGER Oxygen Saturation 92% 05/25/2019 1:3 3 PM CDT Inhaled Oxygen Concentration - - Weight 107.5 kg (237 lb) 05/25/2019 1:3 3 PM CDT last weighed October 2018 by neurologist Height 182.9 cm (6') 05/25/2019 1:33 PM CDT Body Mass Index 32.14 05/25/2019 1:33 PM CDT Procedures * IMAGING/RADIOLOGY/XRAY RESULTS ORDER(Performed 02/20/2019) * GLUCOSE - POINT OF CARE(Performed 04/19/2017) Performed for Peripheral edema, Low blood sugar * CULTURE URINE(Performed 11/09/2016) Performed for Mild intermittent asthma without complication (HCC), Seasonal allergic rhinitis due to fungal spores, Gastroesophageal reflux disease without esophagitis, T6 spinal cord injury, sequela(HCC), Frequent UTI, Self- catheterizes urinary bladder, History of DVT (deep vein thrombosis), Chronic deep vein thrombosis (DVT) of proximal vein of both lower extremities (HCC) * CULTURE URINE(Performed 11/04/2016) Performed for Gastroesophageal reflux disease without esophagitis, Mild intermittent asthma withoutcomplication (HCC), Seasonal allergic rhinitis due to fungal spores, T6 spinal cord injury, sequela(HCC), Frequent UTI, Self- catheterizes urinary bladder, History of DVT (deep vein thrombosis), Chronic deep vein thrombosis (DVT) of proximal vein of both lower extremities (HCC) * CULTURE URINE(Performed 10/05/2016) Performed for Urinary tract infection, site unspecified * XR ABDOMEN AP AND OBLIQUE(Performed 08/24/2016) Performed for Kidney stone * US RETROPERITONEAL COMPLETE(Performed 08/13/2016) Performed for Preprocedural examination * CULTURE URINE(Performed 08/12/2016) Performed for Preprocedural examination * PROSTATE SPECIFIC ANTIGEN SCREEN(Performed 10/22/2015) Performed for Screening PSA (prostate specific antigen) * B-TYPE NATRIURETIC PEPTIDE(Performed 10/22/2015) Performed for Leg swelling * LIPID PROFILE W TCHOL/HDL(Performed 10/22/2015) Performed for Elevated LDL cholesterol level * COMPREHENSIVE METABOLIC PANEL(Performed 10/22/2015) Performed for Leg swelling * CBC W AUTO DIFFERENTIAL(Performed 10/22/2015) Performed for Leg swelling * VAS BILATERAL VENOUS DUPLEX LE(Performed 10/22/2015) Performed for Leg swelling, History of DVT (deep vein thrombosis) * CULTURE URINE(Performed 10/21/2015) Performed for History of recurrent UTIs, Urine leukocytes, Dysuria, Self- catheterizes urinary bladder * URINALYSIS AUTO - POINT OF CARE(Performed 10/21/2015) Performed for History of recurrent UTIs, Dysuria, Self-catheterizes urinary bladder, Urine leukocytes * EXCISION MASS OR TUMOR (ANY AREA)(Performed 06/11/2015) * CULTURE WOUND+GRAM STAIN(Performed 06/11/2015) Performed for Diagnosis unknown * CULTURE ANAEROBE(Performed 06/11/2015) Performed for Diagnosis unknown * PATHOLOGY TISSUE EXAM (STL)(Performed 06/11/2015) Performed for Diagnosis unknown * EKG 12-LEAD(Performed 06/11/2015) Performed for Preop examination * BASIC METABOLIC PANEL (CALCIUM TOTAL)(Performed 06/11/2015) Performed for Preop examination * PATHOLOGY TISSUE EXAM (STL)(Performed 05/09/2015) Performed for Other ill-defined conditions(799.89) * CLOSURE WOUND SECONDARY(Performed 05/09/2015) * CULTURE WOUND+GRAM STAIN(Performed 05/02/2015) Performed for Seasonal allergies * CULTURE ANAEROBE(Performed 05/02/2015) Performed for Seasonal allergies * IRRIGATION/DEBRIDEMENT WOUND/TISSUE(Performed 05/02/2015) Performed for Cellulitis and abscess of unspecified site * CULTURE ANAEROBE+AEROBE(Performed 04/29/2015) Performed for Abscess of arm, right * US SCROTUM W DOPPLER(Performed 06/13/2014) Performed for Epididymitis, Testicular/scrotal pain * CULTURE URINE(Performed 06/12/2014) Performed for Self-catheterizes urinary bladder, UTI (urinary tract infection), Frequent UTI * URINALYSIS AUTO - POINT OF CARE(Performed 06/12/2014) * CULTURE URINE(Performed 10/26/2013) Performed for UTI (urinary tract infection) * URINALYSIS AUTO - POINT OF CARE(Performed 10/26/2013) Performed for UTI (urinary tract infection) * IMAGING/RADIOLOGY/XRAY RESULTS ORDER(Performed 08/12/2013) * XR CHEST 2VW(Performed 12/30/2012) Performed for Abdominal pain, LUQ (left upper quadrant), Pain of left side of body * US ABDOMEN COMPLETE(Performed 12/30/2012) Performed for Abdominal pain, LUQ (left upper quadrant), Pain of left side of body * CULTURE URINE(Performed 12/28/2012) Performed for Abdominal pain, LUQ (left upper quadrant), Pain of left side of body, UTI (urinary tract infection) * URINALYSIS AUTO - POINT OF CARE(Performed 12/28/2012) Performed for Abdominal pain, LUQ (left upper quadrant), Pain of left side of body, UTI (urinary tract infection) * XR THORACIC SPINE 2VW(Performed 09/02/2012) Performed for Back pain * US ABDOMEN LIMITED(Performed 01/19/2012) Performed for UTI (urinary tract infection) * URINALYSIS AUTO - POINT OF CARE(Performed 01/15/2012) Performed for UTI (urinary tract infection) * URINALYSIS AUTO - POINT OF CARE(Performed 01/05/2012) Performed for UTI (urinary tract infection) * IMAGING/RADIOLOGY/XRAY RESULTS ORDER(Performed 06/29/2011) * IMAGING/RADIOLOGY/XRAY RESULTS ORDER(Performed 05/26/2011) * IMAGING/RADIOLOGY/XRAY RESULTS ORDER(Performed 05/25/2011) * TSH(Performed 05/22/2011) Performed for Paraplegia (HCC) * LIPID PROFILE(Performed 05/22/2011) Performed for Paraplegia (HCC) * COMPREHENSIVE METABOLIC PANEL(Performed 05/22/2011) Performed for Paraplegia (HCC) * CBC W AUTO DIFFERENTIAL(Performed 05/22/2011) Performed for Paraplegia (HCC) * IMAGING/RADIOLOGY/XRAY RESULTS ORDER(Performed 05/08/2011) * IMAGING/RADIOLOGY/XRAY RESULTS ORDER(Performed 05/08/2011) * LAB RESULTS ORDER(Performed 08/12/2010) * COMPREHENSIVE METABOLIC PANEL(Performed 04/03/2010) Performed for Anemia * CBC W AUTO DIFFERENTIAL(Performed 04/03/2010) Performed for Anemia * HELICOBACTER PYLORI UREASE(Performed 02/25/2010) Performed for Screen Malig Neop-Colon * GROSS + MICRO EXAM(Performed 02/25/2010) Performed for Screen Malig Neop-Colon * ENDOSCOPY ORDER(Performed 02/25/2010) * ENDOSCOPY, COLON, SCREENING(Performed 02/25/2010) * ENDOSCOPY ORDER(Performed 02/25/2010) * ENDOSCOPY, COLON, SCREENING(Performed 02/25/2010) * VASCULAR LAB ORDER(Performed 02/06/2010) * LAB RESULTS ORDER(Performed 02/06/2010) * LAB RESULTS ORDER(Performed 02/06/2010) * IMAGING/RADIOLOGY/XRAY RESULTS ORDER(Performed 02/06/2010) * IMAGING/RADIOLOGY/XRAY RESULTS ORDER(Performed 02/06/2010) * IMAGING/RADIOLOGY/XRAY RESULTS ORDER(Performed 02/06/2010) * MRI LUMBAR SPINE WWO CONTRAST(Performed 12/05/2009) Performed for Back Pain * VASCULAR LAB ORDER(Performed 11/28/2009) * LAB RESULTS ORDER(Performed 11/06/2009) * URINALYSIS REFLEX TO MICROSCOPIC NO CULTURE(Performed 09/26/2009) Performed for Uti (Urinary Tract Infection) * PT-INR(Performed 09/26/2009) Performed for Encounter for Long-Term (Current) Use of Anticoagulants * VASCULAR LAB ORDER(Performed 09/05/2009) * PT-INR(Performed 08/20/2009) * UA/M W REFLEX CULTURE(Performed 07/08/2009) * CULTURE URINE(Performed 07/08/2009) * PT-INR(Performed 07/04/2009) * PT-INR(Performed 06/12/2009) * URINALYSIS REFLEX TO MICROSCOPIC NO CULTURE(Performed 06/12/2009) * CULTURE URINE(Performed 06/12/2009) Results * IMAGING/RADIOLOGY/XRAY RESULTS ORDER (02/20/2019) Only the most recent of10 resultswithin the time period is included. Anatomical Region Laterality Modality Other Provider Unknown IMAGING * GLUCOSE - POINT OF CARE (04/19/2017) Glucose 91 60 - 100 mg/dL Blood BLOOD SPECIMEN / Unknown 04/19/2017 Nathaniel Go DO LAB - POINT OF CARE ORDERABLES * CULTURE URINE (11/09/2016 3:37 PM CDT) Only the most recent of10 resultswithin the time period is included. Culture <10,000 CFU/mL urogenital sang HERNÁN 11/11/2016 9:22 AM CDT [facility] Urine URINE SPECIMEN OBTAINED BY CLEAN CATCH PROCEDURE / Unknown Collection / Unknown 11/09/2016 3:37 PM CDT 11/09/2016 4:13 PM CDT Addison Hensley MD LAB - MICROBIOLO GY ORDERABLES [facility] [address] [place] [address], [facility] [phone] * XR ABDOMEN AP AND OBL (08/24/2016 1:54 PM SMELTER CHARGER) Anatomical Region Laterality Modality Abdomen Radiographic Yahaira ging 08/24/2016 1:56 PM SMELTER CHARGER Narrative 08/24/2016 2:00 PM SMELTER CHARGER Abdomen AP and Bilateral Obliques Indication: Renal Stone Findings: No renal calculus is seen. Multiple calculi overlie the pelvis, likely phleboliths. Bowel gas pattern is normal. There is a levoconvex lumbar curvature. IVC filter is in place. There is right hip osteoarthritis with deformity of the right pelvis and femur. This is incompletely visualized. Procedure Note Eli Pardo MD - 08/24/2016 Abdomen AP and Bilateral Obliques Indication: Renal Stone Findings: No renal calculus is seen. Multiple calculi overlie the pelvis, likely phleboliths. Bowel gas pattern is normal. There is a levoconvex lumbar curvature. IVC filter is in place. There is right hip osteoarthritis with deformity of the right pelvis and femur. This is incompletely visualized. Addison Hensley MD DIAGNOSTIC IMAGI NG ORDERABLES * US RETROPERITONEAL COMPLETE (08/13/2016 2:20 PM SMELTER CHARGER) Anatomical Region Laterality Modality Abdomen Ultrasound 08/13/2016 2:27 PM SMELTER CHARGER Impressions 08/13/2016 2:56 PM SMELTER CHARGER Echogenic foci in the left renal collecting system are consistent with calculi. Edited by Anabel Rowe on 08/13/2016 2:35 PM Narrative 08/13/2016 2:56 PM SMELTER CHARGER RETROPERITONEAL ULTRASOUND INDICATION: Flank pain. FINDINGS: Echogenic foci in the mid left renal collecting system are consistent with calculi. Neither kidney appears obstructed at this time. The right kidney measures 12.47 x 5.47 x 5.31 cm and the left kidney measures 11.15 x 4.89 x 4.67 cm. The urinary bladder is empty. Procedure Note Deyanira Osborn MD - 08/13/2016 RETROPERITONEAL ULTRASOUND INDICATION: Flank pain. FINDINGS: Echogenic foci in the mid left renal collecting system are consistent with calculi. Neither kidney appears obstructed at this time. The right kidney measures 12.47 x 5.47 x 5.31 cm and the left kidney measures 11.15 x 4.89 x 4.67 cm. The urinary bladder is empty. IMPRESSION Echogenic foci in the left renal collecting system are consistent with calculi. Edited by Anabel Rowe on 08/13/2016 2:35 PM Addison Hensley MD ORDERABLES * PROSTATE SPECIFIC ANTIGEN SCREEN (10/22/2015 3:05 PM CDT) PSA 2.03 0.00 - 4.00 ng/mL [facility] INSURANCE BILL Blood specimen (specimen) BLOOD SPECIMEN / Unknown 10/22/2015 3:05 PM CDT 10/22/2015 6:37 PM CDT Narrative Resulting Agency Comment [facility] [address] [place] [phone] Khanh Alvarado RESEARCH DIETITIAN-INFRASTRUCTURE DIRECTOR LAB - C HEMISTRY ORDERABLES [facility] INSURANCE BILL * LIPID PROFILE W TCHOL/HDL (PO REF [...] 7:21 PM CDT Narrative Resulting Agency Comment [facility] [address] [place] [phone] Khanh Alvarado RESEARCH DIETITIAN-INFRASTRUCTURE DIRECTOR LAB - C HEMISTRY ORDERABLES [facility] INSURANCE BILL * (ABNORMAL) CBC W AUTO DIFFERENTIAL (10/22/2015 3:04 PM CDT) Only the most recent of3 resultswithin the time period is included. WBC 8.5 4.4 - 10.7 x10E9/L [facility] INSURANCE BILL RBC 4.72 3.80 - 5.40 x10E12/L [facility] INSURANCE BILL Hemoglobin 13.6 12.0 - 17.6 gm/dL [facility] INSURANCE BILL Hematocrit 41.8 35.2 - 51.7 % [facility] INSURANCE BILL MCV 88.6 80.7 - 98.3 fL [facility] INSURANCE BILL MCH 28.8 26.7 - 34.0 pg [facility] INSURANCE BILL MCHC 32.5 30.8 - 35.9 gm/dL [facility] INSURANCE BILL RDW 14.2 12.1 - 14.9 % [facility] INSURANCE BILL Platelet Count 228 153 - 416 x10E9/L [facility] INSURANCE BILL Comment:MPV FL BLOOD (SSM) 11.5 fl 9.4-12.9 Granulocytes % 74.0(H) 44.0 - 73.0 % [facility] INSURANCE BILL Lymphocytes % 15.7(L) 20.0 - 43.0 % [facility] INSURANCE BILL Monocytes % 8.5 5.0 - 13.0 % [facility] INSURANCE BILL Eosinophils % 1.2 0.0 - 6.0 % [facility] INSURANCE BILL Basophils % 0.4 0.0 - 2.0 % [facility] INSURANCE BILL Granulocytes Absolute 6.25 2.01 - 7.14 x10E9/L [facility] INSURANCE BILL Lymphocytes Absolute 1.33 1.07 - 3.94 x10E9/L [facility] INSURANCE BILL Monocytes Absolute 0.72 0.26 - 1.07 x10E9/L [facility] INSURANCE BILL Eosinophils Absolute 0.10 0 - 0.47 x10E9/L [facility] INSURANCE BILL Basophils Absolute 0.03 0 - 0.08 x10E9/L [facility] INSURANCE BILL Immature Granulocytes 0.2 0 - 1 % [facility] INSURANCE BILL Immature Granulocytes Absolute 0.02 0.00 - 0.06 x10E9/L [facility] INSURANCE BILL nRBC 0 /100 WBC [facility] INSURANCE BILL Blood specimen (specimen) BLOOD SPECIMEN / Unknown 10/22/2015 3:04 PM CDT 10/22/2015 7:21 PM CDT Narrative Resulting Agency Comment [facility] [address] [place] [phone] Khanh Alvarado APRN-INFRASTRUCTURE DIRECTOR LAB - H EMATOLOGY ORDERABLES [facility] INSURANCE BILL * B-TYPE NATRIURETIC PEPTIDE (10/22/2015 3:04 PM CDT) BNP 10.6 0.0 - 100.0 pg/mL [facility] INSURANCE BILL Blood specimen (specimen) BLOOD SPECIMEN / Unknown 10/22/2015 3:04 PM CDT 10/22/2015 7:21 PM CDT Narrative Resulting Agency Comment [facility] [address] [phone] Khanh Alvarado APRN-INFRASTRUCTURE DIRECTOR LAB - C HEMISTRY ORDERABLES [facility] INSURANCE BILL * COMPREHENSIVE METABOLIC PANEL (10/22/2015 3:04 PM CDT) Only the most recent of3 resultswithin the time period is included. Glucose 79 74 - 106 mg/dL [facility] INSURANCE BILL BUN 15 7 - 21 mg/dL [facility] INSURANCE BILL Creatinine 0.79 0.50 - 1.30 mg/dL [facility] INSURANCE BILL eGFR by MDRD >60 >60 mL/min/1.7 3m2 [facility] INSURANCE BILL eGFR by MDRD >60 >60 mL/min/1.7 3m2 [facility] INSURANCE BILL Sodium 140 136 - 145 mmol/L [facility] INSURANCE BILL Potassium 3.8 3.5 - 5.1 mmol/L [facility] INSURANCE BILL Chloride 105 98 - 107 mmol/L [facility] INSURANCE BILL CO2 28 22 - 31 mmol/L [facility] INSURANCE BILL Calcium 9.3 8.5 - 10.1 mg/dL [facility] INSURANCE BILL Protein Total 7.4 6.4 - 8.2 gm/dL [facility] INSURANCE BILL Albumin 3.9 3.4 - 5.0 gm/dL [facility] INSURANCE BILL Bilirubin Total 0.4 0.2 - 1.0 mg/dL [facility] INSURANCE BILL Alkaline Phosphatase 95 38 - 126 U/L [facility] INSURANCE BILL AST 15 5 - 40 U/L [facility] INSURANCE BILL ALT 18 12 - 78 U/L [facility] INSURANCE BILL Blood specimen (specimen) BLOOD SPECIMEN / Unknown 10/22/2015 3:04 PM CDT 10/22/2015 7:21 PM CDT Narrative Resulting Agency Comment [facility] [address] [place] [address] [place] [phone] Khanhta KhanAlizenabil Alvarado RESEARCH DIETITIAN-INFRASTRUCTURE DIRECTOR LAB - C HEMISTRY ORDERABLES [facility] INSURANCE BILL * VAS VENOUS DUPLEX LE BILATERAL (10/22/2015 2:42 PM CDT) Anatomical Region Laterality Modality Ultrasound 10/22/2015 1:46 PM CDT Narrative Procedure Note Ulises Olivares MD - 10/22/[address] [address] Lower Extremity Venous Ultrasound Report Pat.Name: LAVONALPHONSEAZIZA Pat.ID: [id number] St.Date: 10/22/2015 Exam Time: 1:46:00 PM Study Type:LE Venous Age: 10 1965,50Y Sex: MALE Sonogrphr: Maximus Gamboa, IVONE Pat. Stat.:Outpatient Reason for Study:Swelling -Leg, bilateral History / Clinical:History of DVT, Paraplegia Procedures:Lower Extremity Venous - Bilateral Visit ID: [id number] FINDINGS: Procedure: Venous duplex imaging of both lower extremities was performed using color flow and spectral Doppler analysis. Study Quality: Technically difficult exam due to edema. Rt Leg: There is chronic, non-occlusive thrombus in the common femoral vein. There is chronic, non-occlusive thrombus in the proximal and mid femoral vein. There is chronic, occlusive thrombus in the distal femoral vein. There is chronic, non-occlusive thrombus in the popliteal vein. All other vessels seen appear patent and compressible. Suboptimal visualization of calf veins due to edema. Lt Leg: There is chronic, non-occlusive thrombus in the common femoral vein. There is chronic, non-occlusive thrombus in the popliteal vein. All other vessels seen appear patent and compressible. Suboptimal visualization of calf veins due to edema. Comments: No acute DVT seen. Signed 10/22/2015 03:16 PM Ulises Olivares MD Khanh Alvarado RESEARCH DIETITIAN-INFRASTRUCTURE DIRECTOR VASCULA R LAB ORDERABLES * URINALYSIS AUTO - POINT OF CARE (10/21/2015) Only the most recent of6 resultswithin the time period is included. Clarity UA POCT clear Color UA POCT yellow Leukocyte UA small Negative Nitrite UA POCT neg Negative Urobilinogen UA 0.2 0.1 - 1.0 Protein UA POCT neg Negative pH UA 5.5 5.0 - 8.0 pH units Blood UA trace-inta ct Negtive Specific Baxter UA POCT 1.025 1.002 - 1.030 Ketone UA neg Negative Bilirubin UA POCT neg Negative Glucose UA neg Negative Urine specimen (specimen) URINE / Unknown 10/21/2015 Khanh Alvarado RESEARCH DIETITIAN-INFRASTRUCTURE DIRECTOR LAB - P OINT OF CARE ORDERABLES * (ABNORMAL) CULTURE WOUND+GRAM STAIN (06/11/2015 11:11 AM SMELTER CHARGER) Only the most recent of2 resultswithin the time period is included. Culture Heavy growth Staphylococcus aureus (MRSA)(A) HERNÁN 06/13/2015 9:24 AM [facility] Gram Stain Heavy White blood cells 06/13/2015 9:24 AM [facility] Gram Stain Heavy Gram positive cocci in clusters 06/13/2015 9:24 AM [facility] Microbiology SPECIMEN FROM WOUND / Unknown 06/11/2015 11:11 AM SMELTER CHARGER 06/11/2015 11:19 AM SMELTER CHARGER Narrative [facility] - 06/13/2015 9:24 AM SMELTER CHARGER Methicillin Resistant Staphylococci (MRSA) are resistant to all currently available beta-lactam antibiotics with the exception of the newer cephalosporins with anti-MRSA activity. Contact precautions required. Organism Antibiotic Method Susceptibility Staphylococcus aureus methicillin-resistant (MRSA) Ciprofloxacin HERNÁN 1 ug/mL: Susceptible Staphylococcus aureus methicillin-resistant (MRSA) Clindamycin HERNÁN 0.25 ug/mL: Susceptible Staphylococcus aureus methicillin-resistant (MRSA) Doxycycline HERNÁN <=0.5 ug/mL: Susceptible Staphylococcus aureus methicillin-resistant (MRSA) Erythromycin HERNÁN >=8 ug/mL: Resistant Staphylococcus aureus methicillin-resistant (MRSA) Gentamicin HERNÁN <=0.5 ug/mL: Susceptible Staphylococcus aureus methicillin-resistant (MRSA) Inducible Clindamycin Resistance HERNÁN NEG ug/mL: - Staphylococcus aureus methicillin-resistant (MRSA) Levofloxacin HERNÁN 1 ug/mL: Susceptible Staphylococcus aureus methicillin-resistant (MRSA) Linezolid HERNÁN 2 ug/mL: Susceptible Staphylococcus aureus methicillin-resistant (MRSA) Oxacillin HERNÁN >=4 ug/mL: Resistant Staphylococcus aureus methicillin-resistant (MRSA) Tetracycline HERNÁN <=1 ug/mL: Susceptible Staphylococcus aureus methicillin-resistant (MRSA) Trimethoprim-sulfamethoxa zole HERNÁN <=10 ug/mL: Susceptible Staphylococcus aureus methicillin-resistant (MRSA) Vancomycin HERNÁN <=0.5 ug/mL: Susceptible Pradeep Horton DO LAB - MICROBIOLOGY O DEBBI Performing Organization Address [facility] Co de Phone Number [facility] [address] [place] [address], [facility] [phone] * CULTURE ANAEROBE (06/11/2015 11:11 AM SMELTER CHARGER) Only the most recent of2 resultswithin the time period is included. Culture No anaerobic organisms isolated HERNÁN 06/17/2015 3:41 PM SMELTER CHARGER [facility] Microbiology SPECIMEN FROM WOUND / Unknown 06/11/2015 11:11 AM SMELTER CHARGER 06/11/2015 11:19 AM SMELTER CHARGER Pradeep Horton DO LAB - MICROBIOLOGY O DEBBI Performing Organization Address [facility] de Phone Number [facility] [address] [place] [address], [facility] [phone] * GROSS + MICRO EXAM (STL) (06/11/2015 11:06 AM SMELTER CHARGER) Only the most recent of2 resultswithin the time period is included. Case Report Surgical Pathology Report Case: [id number] Authorizing Provider: Pradeep Horton DO Collected: 06/11/2015 11:06 AM Ordering Location: [facility] Received: 06/11/2015 12:17 PM Pathologist: Fred Basilio MD Specimen: Arm Mass, right forearm mass 06/12/2015 3:44 PM [facility] Final Diagnosis 1. Right forearm, mass: -- Acute and chronic inflammation with ulceration and microabscess formation PATRICIA/bandar 06/12/2015 3:44 PM [facility] Gross Description Received in formalin in a container labeled AngelaFawadsalvador Mendoza., right forearm mass. The container holds multiple [id number] fragments measuring 2.5 x 2 x 0.3 cm in aggregate. The specimen is entirely submitted in cassette labeled A1. MONICA/bogdan 06/12/2015 3:44 PM SMELTER CHARGER [facility] Microscopic Description Section labeled right forearm mass show a skin fragment. The skin is surfaced by squamous epithelium. There is acute and chronic inflammation with ulceration seen. The inflammation is severe. Microabscess formation is present. No malignancy is seen. Inflammatory changes extend to surgical margin of resection. PATRICIA/bandar 06/12/2015 3:44 PM [facility]GER [facility] Pathology/Cytolo gy SPECIMEN FROM MASS / Unknown 06/11/2015 11:06 AM SMELTER CHARGER 06/11/2015 12:17 PM SMELTER CHARGER Pradeep Horton DO LAB - PATHOLOGY/CYTO LOGY ORDERABLES Performing Organization Address [facility] de Phone Number [facility] [address] [place] [address] * EKG 12-LEAD (06/11/2015 9:40 AM SMELTER CHARGER) Ventricular Rate 91 BPM [facility] MUSE Atrial Rate 91 BPM [facility] P-R Interval 166 ms [facility] QRS Duration ms 90 ms [facility] Q-T Interval ms 362 ms [facility] QTC Calculation (Bezet) 445 ms [facility] MUSE Calculated P [place] 36 degrees [facility] MUSE Calculated R [place] 22 degrees [facility] MUSE Calculated T [place] 5 degrees [facility] MUSE Interpretation EKG Normal sinus rhythm Normal ECG No previous ECGs available Confirmed by ДМИТРИЙ MONTERO, BILLIE ([id number]) on 06/12/2015 9:01:33 AM DP MUSE 06/11/2015 9:40 AM SMELTER CHARGER 06/12/2015 9:01 AM SMELTER CHARGER Pradeep Horton DO ECG ORDERABLES Performing Organization Address [facility] de Phone Number [facility] M[facility] * (ABNORMAL) BASIC METABOLIC PANEL (CALCIUM TOTAL) (06/11/2015 8:58 AM SMELTER CHARGER) Glucose 97 74 - 106 mg/dL 06/11/2015 9:22 AM [facility]ORAT[facility] Sodium 141 136 - 145 mmol/L 06/11/2015 9:22 AM [facility] DP LABORATORY Potassium 3.8 3.5 - 5.1 mmol/L 06/11/2015 9:22 AM [facility] DP LABORAT[facility] Chloride 107 98 - 107 mmol/L 06/11/2015 9:22 AM [facility] CO2 31 22 - 31 mmol/L 06/11/2015 9:22 AM [facility] Calcium 9.3 8.5 - 10.1 mg/dL 06/11/2015 9:22 AM [facility] Anion Gap 3(L) 5 - 20 mmol/L 06/11/2015 9:22 AM [facility] BUN 15 7 - 21 mg/dL 06/11/2015 9:22 AM [facility] Creatinine 0.87 0.50 - 1.30 mg/dL 06/11/2015 9:22 AM [facility] eGFR by MDRD >60 >60 mL/min/1.7 3m2 06/11/2015 9:22 AM [facility] eGFR by MDRD >60 >60 mL/min/1.7 3m2 06/11/2015 9:22 AM [facility] Blood BLOOD SPECIMEN / Unknown 06/11/2015 8:58 AM SMELTER CHARGER 06/11/2015 9:09 AM [facility] Pradeep Horton DO LAB - CHEMISTRY UMM PLATA [facility] [address] [place] [address] * (ABNORMAL) CULTURE ANAEROBE+AEROBE (PO REF LAB) (04/29/2015 2:40 PM CDT) Anaerobic Culture Final report [facility] INSURANCE BILL Result 1 [facility] INSURANCE BILL Comment:No anaerobic growth in 72 hours. Aerobic Culture Final report(A) [facility] INSURANCE BILL Result 1 Staphylococcus aureus(A) [facility] INSURANCE BILL Comment: Heavy growth Based on resistance to penicillin and susceptibility to oxacillin this isolate would be susceptible to: * Penicillinase-stable penicillins; such as: Cloxacillin Dicloxacillin Nafcillin * Beta-lactam/beta-lactamase inhibitor combinations; such as: Amoxicillin-clavulanic acid Ampicillin-sulbactam * Antistaphylococcal cephems; such as: Cefaclor Cefuroxime * Antistaphylococcal carbapenems; such as: Imipenem Meropenem Result 2 Proteus mirabilis(A) [facility] INSURANCE BILL Comment:Light growth Antimicrobial Susceptibility [facility] INSURANCE BILL Comment: S = Susceptible; I = Intermediate; R = Resistant P = Positive; N = Negative MICS are expressed in micrograms per mL Antibiotic RSLT#1 RSLT#2 RSLT#3 RSLT#4 Amoxicillin/Clavulanic Acid S Ampicillin S Cefazolin R Cefepime S Ceftriaxone S Cefuroxime S Ciprofloxacin R S Clindamycin S Ertapenem S Erythromycin S Gentamicin S S Levofloxacin I S Linezolid S Moxifloxacin R Oxacillin S Penicillin R Piperacillin S Quinupristin/Dalfopristin S Rifampin S Tetracycline S R Tobramycin S Trimethoprim/Sulfa S S Vancomycin S SPECIMEN FROM ABSCESS / Unknown 04/29/2015 2:40 PM CDT 04/29/2015 11:11 PM CDT Narrative Resulting Agency Comment [facility] [address] [facility] [phone] Nathaniel Go DO LAB - MICROBIOLOGY O RDERABLES [facility] INSURANCE BILL * US SCROTUM WITH DOPPLER (06/13/2014 3:31 PM SMELTER CHARGER) Anatomical Region Laterality Modality Pelvis Ultrasound 06/13/2014 4:23 PM SMELTER CHARGER Impressions 06/13/2014 4:46 PM SMELTER CHARGER ENLARGED HYPEREMIC RIGHT EPIDIDYMIS, SUGGESTIVE OF EPIDIDYMITIS. Edited by Charito Cardenas on 06/13/2014 4:37 PM Narrative 06/13/2014 4:46 PM SMELTER CHARGER ULTRASOUND SCROTUM WITH DOPPLER CLINICAL INDICATION: Right-sided testicular pain and swelling. TECHNIQUE: Grayscale and Doppler images of the scrotum were obtained. FINDINGS: The right epididymis is enlarged measuring 4.8 x 2.6 x 3.2 cm. There is hyperemia to the right epididymis. The left epididymis was not visualized. The bilateral testes demonstrate normal size, echotexture, and vascular flow. There is no evidence of hydrocele or varicocele. The right testis measures 4.9 x 2.4 x 3.8 cm. The left testis measures 4.3 x 2.8 x 2.9 cm. Procedure Note Alyx Cabrera MD - 06/13/2014 ULTRASOUND SCROTUM WITH DOPPLER CLINICAL INDICATION: Right-sided testicular pain and swelling. TECHNIQUE: Grayscale and Doppler images of the scrotum were obtained. FINDINGS: The right epididymis is enlarged measuring 4.8 x 2.6 x 3.2 cm. There is hyperemia to the right epididymis. The left epididymis was not visualized. The bilateral testes demonstrate normal size, echotexture, and vascular flow. There is no evidence of hydrocele or varicocele. The right testis measures 4.9 x 2.4 x 3.8 cm. The left testis measures 4.3 x 2.8 x 2.9 cm. IMPRESSION ENLARGED HYPEREMIC RIGHT EPIDIDYMIS, SUGGESTIVE OF EPIDIDYMITIS. Edited by Charito Cardenas on 06/13/2014 4:37 PM Khanh Alvarado APRN-INFRASTRUCTURE DIRECTOR US ORDE SHERLYN * XR CHEST PA AND LATERAL (12/30/2012 11:19 AM CDT) Anatomical Region Laterality Modality Chest Radiographic Yahiara ging 12/30/2012 12:1 9 PM CDT Impressions 12/30/2012 12:51 PM CDT No acute disease in the chest. Narrative 12/30/2012 12:51 PM CDT CHEST - TWO VIEWS INDICATION: Chest pain and difficulty breathing. COMPARISON: None. FINDINGS: Frontal and lateral views of the chest show the lungs to be clear of confluent infiltrates. There are no pleural effusions. Linear stranding overlies the heart on the lateral view. This could be in the right middle lobe but is difficult to visualize on the frontal view. The patient has had spine surgery. The heart size is normal. Procedure Note Ashish Rivero MD - 12/30/2012 CHEST - TWO VIEWS INDICATION: Chest pain and difficulty breathing. COMPARISON: None. FINDINGS: Frontal and lateral views of the chest show the lungs to be clear of confluent infiltrates. There are no pleural effusions. Linear stranding overlies the heart on the lateral view. This could be in the right middle lobe but is difficult to visualize on the frontal view. The patient has had spine surgery. The heart size is normal. IMPRESSION No acute disease in the chest. Nathaniel Go DO DIAGNOSTIC IMAGING O RDERABLES * US ABDOMEN COMPLETE (12/30/2012 11:04 AM CDT) Anatomical Region Laterality Modality Abdomen Ultrasound 12/30/2012 11:3 5 AM CDT Impressions 12/30/2012 11:47 AM CDT Unremarkable complete abdominal ultrasound as described above. Narrative 12/30/2012 11:47 AM CDT COMPLETE ABDOMINAL ULTRASOUND DATE: 12/30/2012. INDICATION: Abdominal pain. FINDINGS: The study is technically limited due to the patient's body habitus and due to a large amount of bowel gas obscuring assessment of the pancreas. The liver is normal in size and acoustic texture with no evidence of intrahepatic mass or biliary dilation. The common bile duct and gallbladder are unremarkable. Both the right and left kidneys are normal in size and acoustic texture with no evidence of renal mass, cyst, stone or hydronephrosis. The spleen is unremarkable. The visualized portions of the abdominal aorta and inferior vena cava are unremarkable. Procedure Note Ulises Gutierrez MD - 12/30/2012 COMPLETE ABDOMINAL ULTRASOUND DATE: 12/30/2012. INDICATION: Abdominal pain. FINDINGS: The study is technically limited due to the patient's body habitus and due to a large amount of bowel gas obscuring assessment of the pancreas. The liver is normal in size and acoustic texture with no evidence of intrahepatic mass or biliary dilation. The common bile duct and gallbladder are unremarkable. Both the right and left kidneys are normal in size and acoustic texture with no evidence of renal mass, cyst, stone or hydronephrosis. The spleen is unremarkable. The visualized portions of the abdominal aorta and inferior vena cava are unremarkable. IMPRESSION Unremarkable complete abdominal ultrasound as described above. Nathaniel Go DO US ORDERABLES * XR THORACIC SPINE 2 VW (09/02/2012) Anatomical Region Laterality Modality Spine Other Nathaniel Go DO DIAGNOSTIC IMAGING O RDERABLES * RENAL ULTRASOUND LEFT (01/19/2012) Anatomical Region Laterality Modality Abdomen Other Nathaniel Go DO US ORDERABLES * TSH (05/22/2011 2:26 PM CDT) TSH 2.220 0.450 - 4.500 uIU/mL [facility] ACCOUNT BILL Blood specimen (specimen) BLOOD SPECIMEN / Unknown 05/22/2011 2:26 PM CDT 05/22/2011 10:13 PM CDT Narrative Resulting Agency Comment [facility] [address] [id number] Nathaniel Go DO LAB - CHEMISTRY UMM PLATA Performing Organization Address [facility] Co de Phone Number [facility] ACCOUNT BILL * (ABNORMAL) LIPID PROFILE (05/22/2011 2:26 PM CDT) Cholesterol 193 100 - 199 mg/dL [facility] ACCOUNT BILL Triglycerides 70 0 - 149 mg/dL [facility] ACCOUNT BILL HDL Cholesterol 45 >39 mg/dL [facility] ACCOUNT BILL Comment: According to ATP-III Guidelines, HDL-C >59 mg/dL is considered a negative risk factor for CHD. VLDL Calculated 14 5 - 40 mg/dL [facility] ACCOUNT BILL LDL Calculated 134(H) 0 - 99 mg/dL [facility] ACCOUNT BILL Blood specimen (specimen) BLOOD SPECIMEN / Unknown 05/22/2011 2:26 PM CDT 05/22/2011 10:13 PM CDT Narrative Resulting Agency Comment [facility] [address] [id number] Nathaniel Go DO LAB - CHEMISTRY JMSravanthi PLATA Performing Organization Address [facility] de Phone Number [facility] ACCOUNT BILL * LAB RESULTS ORDER (08/12/2010) Only the most recent of4 resultswithin the time period is included. Nathaniel Go DO LAB - THERAPEUTIC DR RANDALL MONITORING ORDERABLES * HELICOBACTER PYLORI UREASE (02/25/2010 3:47 PM CDT) Helicobacter pylori Urease No Urease Activity Detected [facility] GASTRIC ANTRAL BIOPSY SPECIMEN / Unknown 02/25/2010 3:47 PM CDT 02/25/2010 3:47 PM CDT Gil Stubbs MD LAB - MICROBIOLOGY ORDERABLES Performing Organization Address [facility] Co de Phone Number [facility] [address] [place] [address] * ENDOSCOPY ORDER (02/25/2010) Nathaniel Go DO GI PROCEDURE ORDERAB LES * ENDOSCOPY ORDER (02/25/2010) Nathaniel Go DO GI PROCEDURE ORDERAB LES * GROSS + MICRO EXAM (02/25/2010 12:00 AM CDT) [facility] Surgeon DR. Dane STUBBS [facility] Grossed By HELEN SINGLETON [facility] Gross Report [facility] Comment: COPY TO: Donavan Isaac INDICATION FOR PROCEDURE: Dysphagia, Iron deficiency anemia. History of gastro-esophageal reflux disease. OPERATION: Upper GI endoscopy GROSS: The specimen is received in two containers labeled with the patient's name. 1. The first container is labeled duodenum biopsy . It consists of two 1 and 2 mm fragments of martinez tissue. Stained and submitted entirely in A. 2. The second container is labeled sigmoid polyp . It consists of multiple minute flecks of martinez material/possible tissue. Stained and submitted entirely in B. LW/ Microscopic Examination [facility] Comment: MICROSCOPIC: 1. The duodenal biopsy consists of pieces of small bowel mucosa with normal tall villi. No significant inflammation is seen. No pathogenic microorganisms are found. 2. The sigmoid polyp biopsy consists of fecal material and a single small fragment of extensively electrodesiccated mucosa that is uninterpretable but probably is hyperplastic. AB/km Diagnosis [facility] Comment: DIAGNOSIS: 1. Duodenal biopsy: -- No pathologic diagnosis 2. Sigmoid colon polyp, polypectomy: -- Extensively electrodesiccated polyp (see microscopic) AB/km Released by BEBE GA M.D. [facility] CPT Code 64277 x2 [facility] DUODENAL BIOPSY SPECIMEN / Unknown 02/25/2010 02/26/2010 7:43 AM CDT Gil Stubbs MD LAB - PATHOLOGY/CYT OLOGY ORDERABLES Performing Organization Address [facility] Co de Phone Number [facility] [address] [place] [address] * ENDOSCOPY, COLON, SCREENING (02/25/2010) Nathaniel Go DO GI PROCEDURE ORDERAB LES * ENDOSCOPY, COLON, SCREENING (02/25/2010) Nathaniel Go DO GI PROCEDURE ORDERAB LES * VASCULAR LAB ORDER (02/06/2010) Only the most recent of3 resultswithin the time period is included. Anatomical Region Laterality Modality Other Nathaniel Go DO VASCULAR LAB ORDERAB LES * MRI SPINE LUMBAR WITH AND WITHOUT CONTRAST (12/05/2009 2:10 PM CDT) Anatomical Region Laterality Modality Spine Magnetic Resonan ce 12/05/2009 2:13 PM CDT Impressions 12/05/2009 3:44 PM CDT UNREMARKABLE MR EXAMINATION OF THE LUMBAR SPINE. Narrative 12/05/2009 3:44 PM CDT MRI LUMBAR SPINE WITH AND WITHOUT CONTRAST CLINICAL INDICATION: Prior lumbar surgery in December of 2008, complaining of lumbar radiculopathy, low back pain with radiating pain to the right lower extremity, lumbago. TECHNIQUE: Sagittal STIR, axial and sagittal T1 pre- and postcontrast, and axial and sagittal T2-weighted sequences of the lumbar spine were obtained. 20 cc Omniscan gadolinium contrast was utilized for the postcontrast scans. FINDINGS: Alignment is anatomic. There is mild dehydration of the L3-L4 and L5-S1 intervertebral discs. Vertebral body height and bone marrow signal are within normal limits. There are no abnormal sites of enhancement. The conus medullaris terminates at approximately L1-L2. L1-L2: No canal or neural foraminal stenosis. L2-L3: No canal or neural foraminal stenosis. L3-L4: No canal or neural foraminal stenosis. L4-L5: No canal or neural foraminal stenosis. L5-S1: Small, nonenhancing, central disc protrusion. No canal or neural foraminal stenosis. Procedure Note Alyx Cabrera MD - 12/05/2009 MRI LUMBAR SPINE WITH AND WITHOUT CONTRAST CLINICAL INDICATION: Prior lumbar surgery in December of 2008, complaining of lumbar radiculopathy, low back pain with radiating pain to the right lower extremity, lumbago. TECHNIQUE: Sagittal STIR, axial and sagittal T1 pre- and postcontrast, and axial and sagittal T2-weighted sequences of the lumbar spine were obtained. 20 cc Omniscan gadolinium contrast was utilized for the postcontrast scans. FINDINGS: Alignment is anatomic. There is mild dehydration of the L3-L4 and L5-S1 intervertebral discs. Vertebral body height and bone marrow signal are within normal limits. There are no abnormal sites of enhancement. The conus medullaris terminates at approximately L1-L2. L1-L2: No canal or neural foraminal stenosis. L2-L3: No canal or neural foraminal stenosis. L3-L4: No canal or neural foraminal stenosis. L4-L5: No canal or neural foraminal stenosis. L5-S1: Small, nonenhancing, central disc protrusion. No canal or neural foraminal stenosis. IMPRESSION UNREMARKABLE MR EXAMINATION OF THE LUMBAR SPINE. Nathaniel Go DO MR ORDERABLES * (ABNORMAL) URINALYSIS ROUTINE AUTO (09/26/2009 11:00 AM SMELTER CHARGER) Only the most recent of2 resultswithin the time period is included. Color UA YELLOW YELLOW [facility] Appearance CLOUDY(A) CLEAR [facility] Specific Baxter UA 1.008 1.001 - 1.035 [facility] pH UA 7.0 5.0 - 8.0 [facility] Glucose UA NEGATIVE NEGATIVE [facility] Bilirubin UA NEGATIVE NEGATIVE [facility] Ketone UA NEGATIVE NEGATIVE [facility] Blood UA NEGATIVE NEGATIVE [facility] Protein UA NEGATIVE NEGATIVE [facility] Nitrite UA NEGATIVE NEGATIVE [facility] Leukocyte UA NEGATIVE NEGATIVE [facility] WBC UA 0-5 < OR = 5 /HPF [facility] RBC UA 0-3 < OR = 3 /HPF [facility] Epithelial Cell UA 0-5 < OR = 5 /HPF [facility] Bacteria UA FEW(A) NONE SEEN /HPF [facility] Hyaline Casts NONE SEEN NONE SEEN /LPF [facility] Comments FEW MUCOUS THREADS [facility] Comment: Test Performed at: [employer] [facility] [address] [place] [address] YENY ENCISO DO,MPH URINE SPECIMEN FROM URINARY BLADDER / Unknown 09/26/2009 11:00 AM SMELTER CHARGER 09/27/2009 12:59 AM SMELTER CHARGER Nathaniel Morannabila [facility] LAB - URINALYSIS ORD ERABLES Performing Organization Address [facility] de Phone Number [place] [id number] [place] [address] * (ABNORMAL) PT-INR (09/26/2009 11:00 AM SMELTER CHARGER) Only the most recent of4 resultswithin the time period is included. INR 2.6(H) [facility] Comment: Reference Range 0.9-1.1 Moderate-intensity Warfarin Therapy 2.0-3.0 Higher-intensity Warfarin Therapy 3.0-4.0 PT 26.2(H) 9.0 - 11.5 sec [facility] Comment: Test Performed at: [place] [id number] YENY ENCISO DO,MPH BLOOD SPECIMEN / Unknown 09/26/2009 11:00 AM SMELTER CHARGER 09/27/2009 12:59 AM SMELTER CHARGER Nathaniel Mirshyanne [facility] LAB - COAGULATION OR DERABLES Performing Organization Address [facility] de Phone Number [address] [address] * (ABNORMAL) UA/M W REFLEX CULTURE (PO REF LAB) (07/08/2009 5:03 PM SMELTER CHARGER) Color UA YELLOW YELLOW [facility] Appearance CLEAR CLEAR [facility] Specific Baxter UA 1.017 1.001 - 1.035 [facility] pH UA 6.5 5.0 - 8.0 [facility] Glucose UA NEGATIVE NEGATIVE [facility] Bilirubin UA NEGATIVE NEGATIVE [facility] Ketone UA NEGATIVE NEGATIVE [facility] Blood UA NEGATIVE NEGATIVE [facility] Protein UA 1+(A) NEGATIVE [facility] Nitrite UA NEGATIVE NEGATIVE [facility] Luekocyte UA NEGATIVE NEGATIVE [facility] WBC UA 10-20(A) < OR = 5 /HPF [facility] RBC UA 4-10(A) < OR = 3 /HPF [facility] Epithelial Cell UA 0-5 < OR = 5 /HPF [facility] Bacteria UA NONE SEEN NONE SEEN /HPF [facility] Hyaline Casts NONE SEEN NONE SEEN /LPF [facility] Comments FEW MUCOUS THREADS [facility] Comment: SPERMATOZOA PRESENT Test Performed at: [employer] [id number] YENY ENCISO DO,MPH 07/08/2009 5:03 PM SMELTER CHARGER 07/08/2009 5:04 PM SMELTER CHARGER Nathaniel Go DO LAB - URINE CHEMISTR Y ORDERABLES [facility] [address] [place] [address] Care Teams Manager Deli Relationship Specialty Start Date End Date Mary Huston MD [address] [place] [address] PCP - General 09/15/21 Khanh Alvarado APRN-[facility] Nurse Practitioner 10/16/15 Jess Rm MD [address] [place] [address] Physical Medicine and Rehabilitation 05/25/19 Jossy Sanchez MD [address] [place] [address] Physical Medicine and Rehabilitation 05/25/19
--- OUTSIDE RECORDS SUMMARY | 2024-09-06 16:13 | XMS_ITS | Clinical Summary ---
Author Organization [facility] Address [address] [place] [address] Care Team Providers Care Manager Licensing Name Role Phone Susana Alvaradoy Alize APRN-DEPARTMENT OF MATHEMATICS CHAIR Unavailable Jess Rm MD Unavailable [phone] Jossy Sanchez MD Unavailable [phone] Mary Huston MD Primary Care Provider + Source Comments [facility],non-owned Affiliates and Associated Physician Practices is amultiple site organization consisting of ambulatory clinics and hospital sitesin [place], [place], [place] and [place]. This disclosure is being madepursuant to the Care Everywhere program and may not contain all information available regarding this patient. Last updated 18.[facility] Allergies Active Allergy Reactions Criticality Noted Date [...] 45 MG tablet Active vitamin D2 (ERGOCALCIFEROL) 38909 UNIT capsule Take 1 Cap by mouth [...] CDT Respiratory Rate 18 06/11/2015 8:59 AM RESIN MAKER Oxygen Saturation 92% 05/25/2019 1:3 3 PM CDT Inhaled Oxygen Concentration - - Weight 107.5 kg (237 lb) 05/25/2019 1:3 3 PM CDT last weighed October 2018 by neurologist Height 182.9 cm (6') 05/25/2019 1:33 PM CDT Body Mass Index 32.14 05/25/2019 1:33 PM CDT Plan of Treatment Health Maintenance Due Date Last Done Comments COLOGUARD (AGES 45-75) - COLON CA SCREENING 1965 CT COLONOGRAPHY - COLON CA SCREENING 1965 FIT - COLON CA SCREENING 1965 FLEX SIG - COLON CA SCREENING 1965 HIV SCREENING 1980 HEPATITIS C SCREENING 05/09/1983 DTAP/TDAP/TD VACCINES (1 - Tdap) 1984 HEPATITIS B VACCINE (1 of 3 - 19+ 3-dose series) 1984 PNEUMOCOCCAL VACCINE 50+ (1 of 2 - PCV) 1984 PNEUMOCOCCAL VACCINE (1 of 2 - PCV) 1984 ZOSTER VACCINE (1 of 2) 2015 COLON MONITORING 02/26/2020 02/25/2010, 02/25/2010 COLONOSCOPY - COLON CA SCREENING 02/26/2020 02/25/2010, 02/25/2010 Colorectal Cancer Screening 02/26/2020 SCREENING FOR DIABETES 04/19/2020 7, 10/22/2015, 06/11/2015, Additional history exists MEDICARE AWV 12 MONTHS 05/25/2020 05/25/2019 LIPID TESTING 10/21/2020 10/22/2015, 05/22/2011 COVID-19 VACCINE ( season) 2024 INFLUENZA VACCINE (#1) 2024 DEPRESSION SCREENING 08/02/2024 MEDICARE AWV CALENDAR YEAR 2024 05/25/2019 HIB VACCINE Aged Out No longer eligi ble based on patient's age to complete this topic HPV VACCINE Aged Out No longer eligi ble based on patient's age to complete this topic MENINGOCOCCAL (Group B) VACCINE Aged Out No longer eligible based on patient's age to complete this topic MENINGOCOCCAL VACCINE Aged Out No blanca aram eligible based on patient's age to complete this topic Procedures Procedure Name Priority Date/Time Associated Diagnosis [...] 7:21 PM CDT Narrative Resulting Agency Comment 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
--- OUTSIDE RECORDS SUMMARY | 2024-09-06 16:13 | XMS_ITS | Encounter Summary ---
Author Organization [facility] Healthcare Address [address] [place] [address] Care Team Providers Care Retail Zone Specialist Name Role Phone Ann Marie Castillo RN Unavailable Unavailab Mary Ott MD Primary Care Provider Jossy Sanchez MD Unavailable Reason for Visit * Reason Onset Date Comments Med Refill 03/17/2021 Encounter Details Date Type Department Care Team (Late st Contact Info) Description 03/17/[address] [facility] at [facility] [place] [facility] [address] [facility] Advanced Medicine [address] [place] [address] Jossy Sanchez MD [address] [facility] [address] [place], [place] [id number] Med Refill Social History Tobacco Use Types Packs/Day Years Used Date Smoking Tobacco: Never Smokeless Tobacco: Never Alcohol Use Standard Drinks/Week Comments Yes 0 (1 standard drink = 0.6 oz pur e alcohol) Occasionally. Sex and Gender Information Value Date Recorded Sex Assigned at Not on file Legal Sex Male 5:40 AM MANAGED CARE MANAGER Gender Identity Not on file Sexual Orientation Not on file documented as of this encounter Plan of Treatment Not on file documented as of this encounter Goals Goal Patient Goal Type Associated Problems Recent Progress Patient-Stated? Author CCM Chronic Pain Care Plan Chronic Care Management On track(2023 2:56 PM CDT) Jyoti Gonzales, RN Note: Problem: Chronic Pain Goals: 1. Minimize further functional decline 2. Maximize quality of life 3. Control pain Strategies: - Activity/exercise program recommendation - Conservative stepwise pain medicine strategy with multi-disciplinary approach - Recommend healthy lifestyle strategies and compensatory methods as needed documented as of this encounter Visit Diagnoses Not on filedocumented in this encounter Care Teams Retail Zone Specialist Relationship Specialty Start Date End Date Mary Huston MD [address] [facility] [address] [place] [id number] PCP - General 05/09/20 Ann Marie Castillo RN Registered Nurse 05/10/19 Jossy Sanchez MD [address] [facility] [place] [address] Consulting Physician Pain Management 02/05/22 documented as of this encounter
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
--- OUTSIDE RECORDS SUMMARY | 2024-09-06 16:14 | XMS_ITS | Encounter Summary ---
Author Organization [facility] Healthcare Address [address] [place] [address] Care Team Providers Care Epic Prelude Analyst Name Role Phone LuisanabilaNathaniel DO Primary Care Provider [phone] Ann Marie Castillo RN Unavailable Unavailab Mary Ott MD Primary Care Provider Mary Huston MD Primary Care Provider Jossy Sanchez MD Unavailable Reason for Visit * Reason Onset Date Comments Prior Auth 01/12/2019 Methocarbamol Ap proved Encounter Details Date Type Department Care Team (Late st Contact Info) Description 01/12/2019 Telephone [facility] [place] [facility] [address] [facility] Advanced Medicine [address] [place] [address] Jossy Sanchez MD [address] [place], [place] [id number] Prior Auth (Methocarbamol Approved) Social History Tobacco Use Types Packs/Day Years Used Date Smoking Tobacco: Never Smokeless Tobacco: Never Alcohol Use Standard Drinks/Week Comments Yes 0 (1 standard drink = 0.6 oz pur e alcohol) Sex and Gender Information Value Date Recorded Sex Assigned at Not on file Legal Sex Male 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 Gender Identity Not on file Sexual [...] on filedocumented in this encounter Care Teams Epic Prelude Analyst Relationship Specialty Start Date End Date Nathaniel Go DO [address] [place] [address] PCP - General 09/18/16 04/09/20 Mary Huston MD [address] [address] PCP - General Family Medicine 04/10/20 05/08/20 Mary Huston MD [address] [facility] [address] [place] [address] PCP - General 05/09/20 Ann Marie Castillo RN Registered Nurse 05/10/19 Jossy Sanchez MD [address] [facility] [place] [address] Consulting Physician Pain Management 02/05/22 documented as of this encounter
--- OUTSIDE RECORDS SUMMARY | 2024-09-06 16:14 | XMS_ITS | Encounter Summary ---
Author Organization [facility] Healthcare Address [address] [place] [address] Care Team Providers Care Ict Customer Support Officer Name Role Phone Nathaniel Go DO Primary Care Provider [phone] Ann Marie Castillo RN Unavailable Unavailab Mary Ott MD Primary Care Provider Mary Huston MD Primary Care Provider Jossy Sanchez MD Unavailable Reason for Visit * Reason Onset Date Comments Call Back 02/07/2019 Encounter Details Date Type Department Care Team (Late st Contact Info) Description 02/07/2019 Telephone [facility] at the [place] [facility] [address] [facility] Advanced Medicine [address] [place], [place] [id number] Jossy Sanchez MD [address] [place], [place] [id number] Call Back Social History Tobacco Use Types Packs/Day Years Used Date Smoking Tobacco: Never Smokeless Tobacco: Never Alcohol Use Standard Drinks/Week Comments Yes 0 (1 standard drink = 0.6 oz pur e alcohol) Sex and Gender Information Value Date Recorded Sex Assigned at Not on file Legal Sex Male 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 SPECIALIST Gender Identity Not on file Sexual Orientation [...] on filedocumented in this encounter Care Teams Ict Customer Support Officer Relationship Specialty Start Date End Date Nathaniel Go DO [address] [place] [address] PCP - General 09/18/16 04/09/20 Mary Huston MD [address] [address] PCP - General Family Medicine 04/10/20 05/08/20 Mary Huston MD [address] [facility] [address] [place] [address] PCP - General 05/09/20 Ann Marie Castillo RN Registered Nurse 05/10/19 Jossy Sanchez MD [address] [place] [place] [address] Consulting Physician Pain Management 02/05/22 documented as of this encounter
--- OUTSIDE RECORDS SUMMARY | 2024-09-06 16:14 | XMS_ITS | Encounter Summary ---
Author Organization [facility] Healthcare Address [address] [place] [address] Care Team Providers Care Inspector Precision Name Role Phone Ann Marie Castillo RN Unavailable Unavailab Mary Ott MD Primary Care Provider Jossy Sanchez MD Unavailable Encounter Details Date Type Department Care Team (Late st Contact Info) Description 04/17/2022 Telephone [facility] Pain Center at [facility] [address] [facility] 1st [place] [address] Pricilla Ryan RN Social History Tobacco Use Types Packs/Day Years Used Date Smoking Tobacco: Never Smokeless Tobacco: Never Alcohol Use Standard Drinks/Week Comments Yes 0 (1 standard drink = 0.6 oz pur e alcohol) Occasionally. 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 Author [facility] Chronic Pain Care Plan Chronic Care Management On track(2023 2:56 PM CDT) No Jyoti Duque, CHRISTIAN Note: Problem: Chronic Pain Goals: 1. Minimize further functional decline 2. Maximize quality of life 3. Control pain Strategies: - Activity/exercise program recommendation - Conservative stepwise pain medicine strategy with multi-disciplinary approach - Recommend healthy lifestyle strategies and compensatory methods as needed documented as of this encounter Visit Diagnoses Not on filedocumented in this encounter Care Teams Inspector Precision Relationship Specialty Start Date End Date Mary Huston MD [address] [facility] [address] [place] [address] PCP - General 05/09/20 Ann Marie Castillo RN Registered Nurse 05/10/19 Jossy Sanchez MD [address] [place] [place] [address] Consulting Physician Pain Management 02/05/22 documented as of this encounter
[2024-09-06 16:32] LABS: Add Urine Microscopic? YES; Appearance Urine Clear (Clear); Bacteria Urine None Seen /hpf; Bilirubin Urine Negative (Negative); Blood Urine Negative (Negative); Color Urine Yellow (Yellow); Glucose Urine UA Negative (Negative); Ketones Urine Negative (Negative); Leukocyte Esterase Ur 1+ LEU/UL (Negative); Need Manual Microscopic Reviewed; Nitrate Urine Negative (Negative); Non Pathogenic Casts 0-2; Protein Urine Negative (Negative); RBC Urine 0-2 /hpf (0-2); Specific Grav Ur 1.005 (1.001-1.035); Squamous Epithelial Cell Urine None Seen /hpf (Few); Urobilinogen Urine 0.2 mg/dL (<2.0); WBC Urine 0-5 /hpf (0-3)
== END 2024-09-06 16:07 | disposition home or self-care (01) ==
LOC: ANHLAB 16:08
PROVIDERS: PCP Family Medicine; Visit Provider Physician Assistant
DX: R30.0 Dysuria (principal)
CPT/HCPCS: 81001; 87086

== ENCOUNTER 2024-09-28 16:30 | Outpatient (CLI) | payer OTHER, SELFPAY ==
[2024-09-28 17:01] LABS: Add Urine Microscopic? YES; Appearance Urine Clear (Clear); Bacteria Urine None Seen /hpf; Bilirubin Urine Negative (Negative); Blood Urine Negative (Negative); Color Urine Yellow (Yellow); Glucose Urine UA Negative (Negative); Ketones Urine Negative (Negative); Leukocyte Esterase Ur 2+ LEU/UL (Negative); Nitrate Urine Negative (Negative); Non Pathogenic Casts 0-2; Protein Urine Negative (Negative); RBC Urine 0-2 /hpf (0-2); Specific Grav Ur 1.019 (1.001-1.035); Squamous Epithelial Cell Urine None Seen /hpf (Few); Urobilinogen Urine 0.2 mg/dL (<2.0); WBC Urine 21-50 /hpf (0-3)
== END 2024-09-28 16:31 | disposition home or self-care (01) ==
PROVIDERS: PCP Family Medicine; Visit Provider Physician Assistant
DX: R35.0 Frequency of micturition (principal)
CPT/HCPCS: 81001; 87086

== ENCOUNTER 2024-10-20 14:49 | Outpatient (CLI) | payer OTHER, SELFPAY ==
--- NOTE | ~2024-10-20 | US_ITS ---
EXAMINATION: US venous doppler [facility] DATE: 10/20/2024 15:44 INDICATION: Edema TECHNIQUE: Grayscale ultrasound images without and with compression and Doppler ultrasound images of the bilateral lower extremity veins were obtained. COMPARISON: 02/06/2023 FINDINGS: The visualized portions of right common femoral vein, profunda (deep) femoral vein, femoral vein, pop liteal vein, peroneal veins, posterior tibial veins, and greater saphenous vein outflow are patent. The visualized portions of left common femoral vein, profunda femoral vein, femoral vein, popliteal v ein, peroneal veins, posterior tibial veins, and greater saphenous vein outflow are patent. IMPRESSION: 1. No deep venous thrombosis within the bilateral lower extremities, as detailed above. Reviewed, dictated and finalized at location A. IMPRESSION: 1. No deep venous thrombosis within the bilateral lower extremities, as detail ed above.
--- OUTSIDE RECORDS SUMMARY | 2024-10-20 15:00 | XMS_ITS | Encounter Summary ---
Author Organization [facility] Healthcare Address [address] [place] [address] Care Team Providers Care Piling Setter Name Role Phone Ann Marie Castillo RN Unavailable Unavailab Mary Ott MD Primary Care Provider Jossy Sanchez MD Unavailable Reason for Visit * Reason Onset Date Comments Med Refill 03/17/2021 Encounter Details Date Type Department Care Team (Late st Contact Info) Description 03/17/2021 Telephone [facility] Center at the [place] [facility] [address] [facility] Advanced Medicine [address] [place] [address] Jossy Sanchez MD [address] [facility] [address] [place], [place] [id number] Med Refill Social History Tobacco Use Types Packs/Day Years Used Date Smoking Tobacco: Never Smokeless Tobacco: Never Alcohol Use Standard Drinks/Week Comments Yes 0 (1 standard drink = 0.6 oz pur e alcohol) Occasionally. 

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
--- OUTSIDE RECORDS SUMMARY | 2024-10-20 15:01 | XMS_ITS | Referral Summary ---
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 Gender Identity Not on file Sexual Orientation [...] as needed Medical Devices Implanted Type Area Wage Adjuster Device Identifier Shelf Expiration Date Model / Serial / Lot Rods Back Description:Back Insurance [facility] MEDICARE [facility] AETNA MEDICARE GOLD [facility] Care Teams Hot Knife Cutter Relationship Specialty Start Date End Date Mary Huston MD [address] [facility] [address] [place] [address] PCP - General 05/09/20 Ann Marie Castillo RN Registered Nurse 05/10/19 Jossy Sanchez MD [address] [facility] [place] [address] Consulting Physician Pain Management 02/05/22
--- OUTSIDE RECORDS SUMMARY | 2024-10-20 15:01 | XMS_ITS | Clinical Summary ---
Author Organization [facility] Address [address] [facility] [place] [address] Care Team Providers Care Paintless Dent Repair Technician Name Role Phone Susana Alvaradoy Alize APRN-CERTIFIED SKI PATROLLER Unavailable Jess Rm MD Unavailable [phone] Jossy Sanchez MD Unavailable Mary Huston MD Primary Care Provider + Source Comments [facility],non-owned Affiliates and Associated Physician Practices is amultiple site organization consisting of ambulatory clinics and hospital sitesin [place], [place], [place] and [place]. This disclosure is being madepursuant to the Care Everywhere program and may not contain all information available regarding this patient. Last updated 18.[facility] Allergies Active Allergy Reactions Criticality Noted Date [...] 45 MG tablet Active vitamin D2 (ERGOCALCIFEROL) 29560 UNIT capsule Take 1 Cap by mouth [...] CDT Respiratory Rate 18 06/11/2015 8:59 AM DIRECTOR OF FINANCIAL PLANNING Oxygen Saturation 92% 05/25/2019 1:3 3 PM [...] - 19+ 3-dose series) 1984 PNEUMOCOCCAL VACCINE (1 of 2 - PCV) 1984 PNEUMOCOCCAL VACCINE 50+ (1 of 1 - PCV) 2015 ZOSTER VACCINE (1 of 2) 2015 COLON [...] complete this topic MENINGOCOCCAL (Group B) VACCINE SHARED DECISION-MAKING Aged Out No longer eligible based on patient's age to complete this topic MENINGOCOCCAL GROUPS A/C/Y/W VACCINE Aged Out No longer eligible based [...] Comment 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
--- OUTSIDE RECORDS SUMMARY | 2024-10-20 15:01 | XMS_ITS | Encounter Summary ---
Author Organization [facility] Healthcare Address [address] [place] [address] Care Team Providers Care Technician Plant And Maintenance Name Role Phone Ann Marie Castillo RN Unavailable Unavailab Mary Ott MD Primary Care Provider Jossy Sanchez MD Unavailable Encounter Details Date Type Department Care Team (Late st Contact Info) Description 04/17/2022 Telephone [facility] Center at [facility] [address] [facility] 1st [place] [address] Pricilla Ryan RN Social History Tobacco Use Types Packs/Day Years Used Date Smoking Tobacco: Never Smokeless Tobacco: Never Alcohol Use Standard Drinks/Week Comments Yes 0 (1 standard drink = 0.6 oz pur e alcohol) Occasionally. 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 Author [facility] Chronic Pain Care Plan Chronic Care Management [...] on filedocumented in this encounter Care Teams Technician Plant And Maintenance Relationship Specialty Start Date End Date Mary Huston MD [address] [place] [address] PCP - General 05/09/20 Ann Marie Castillo RN Registered Nurse 05/10/19 Jossy Sanchez MD [address] [place] [address] Consulting Physician Pain Management 02/05/22 documented as of this encounter
--- OUTSIDE RECORDS SUMMARY | 2024-10-20 15:01 | XMS_ITS | Encounter Summary ---
Author Organization [facility] Healthcare Address [address] [place] [address] Care Team Providers Care Bone Plant Supervisor Name Role Phone Nathaniel Go DO Primary Care Provider [phone] Ann Marie Castillo RN Unavailable Unavailab Mary Ott MD Primary Care Provider Mary Huston MD Primary Care Provider Jossy Sanchez MD Unavailable Reason for Visit * Reason Onset Date Comments Call Back 02/07/2019 Encounter Details Date Type Department Care Team (Late st Contact Info) Description 02/07/2019 Telephone [facility] [address] [facility] [address] [place], [place] [id number] Jossy Sanchez MD [address] [place], [place] [id number] Call Back Social History Tobacco Use Types Packs/Day Years Used Date Smoking Tobacco: Never Smokeless Tobacco: Never Alcohol Use Standard Drinks/Week Comments Yes 0 (1 standard drink = 0.6 oz pur e alcohol) Sex and Gender Information Value Date Recorded Sex Assigned at Not on file 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 Gender Identity Not on file Sexual Orientation [...] on filedocumented in this encounter Care Teams Bone Plant Supervisor Relationship Specialty Start Date End Date Nathaniel Go DO [address] [place] [address] PCP - General 09/18/16 04/09/20 Mary Huston MD [address] [address] PCP - General Family Medicine 04/10/20 05/08/20 Mary Huston MD [address] [facility] [address] [place] [address] PCP - General 05/09/20 Ann Marie Castillo RN Registered Nurse 05/10/19 Jossy Sanchez MD [address] [facility] [place] [address] Consulting Physician Pain Management 02/05/22 documented as of this encounter
--- OUTSIDE RECORDS SUMMARY | 2024-10-20 15:01 | XMS_ITS | Encounter Summary ---
Author Organization [facility] Healthcare Address [address] [place] [address] Care Team Providers Care Filter Washer Name Role Phone LuisanabilaNathaniel DO Primary Care Provider [phone] Ann Marie Castillo RN Unavailable Unavailab Mary Ott MD Primary Care Provider Mary Huston MD Primary Care Provider Jossy Sanchez MD Unavailable Reason for Visit * Reason Onset Date Comments Prior Auth 01/12/2019 Methocarbamol Ap proved Encounter Details Date Type Department Care Team (Late st Contact Info) Description 01/12/2019 Telephone [facility] [address] [facility] [address] [place] [address] Jossy Sanchez MD [address] [place], [place] [id number] Prior Auth (Methocarbamol Approved) Social History Tobacco Use Types Packs/Day Years Used Date Smoking Tobacco: Never Smokeless Tobacco: Never Alcohol Use Standard Drinks/Week Comments Yes 0 (1 standard drink = 0.6 oz pur e alcohol) Sex and Gender Information Value Date Recorded Sex Assigned at Not on file 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 Author [facility] Chronic Pain Care Plan Chronic Care Management On track(2023 2:56 PM CDT) Jyoti Gonzales, CHRSITIAN Note: Problem: Chronic Pain Goals: 1. Minimize further functional decline 2. Maximize quality of life 3. Control pain Strategies: - Activity/exercise program recommendation - Conservative stepwise pain medicine strategy with multi-disciplinary approach - Recommend healthy lifestyle strategies and compensatory methods as needed documented as of this encounter Visit Diagnoses Not on filedocumented in this encounter Care Teams Filter Washer Relationship Specialty Start Date End Date Nathaniel Go DO [address] [place] [address] PCP - General 09/18/16 04/09/20 Mary Huston MD [address] [address] PCP - General Family Medicine 04/10/20 05/08/20 Mary Huston MD [address] [facility] [address] [place] [address] PCP - General 05/09/20 Ann Marie Castillo RN Registered Nurse 05/10/19 Jossy Sanchez MD [address] [facility] [place] [address] Consulting Physician Pain Management 02/05/22 documented as of this encounter
== END 2024-10-20 14:50 | disposition home or self-care (01) ==
PROVIDERS: PCP Family Medicine; Visit Provider Internal Medicine Cardiovascular Disease
DX: R60.9 Edema, unspecified (principal)
CPT/HCPCS: 93970

== ENCOUNTER 2024-11-30 14:03 | Outpatient (CLI) | payer OTHER, SELFPAY ==
[2024-11-30 14:46] LABS: Basophils Percent Auto 0.6 % (0.2-1.2); Eosinophils Absolute Auto 0.2 K/mm3 (0-0.3); Eosinophils Percent Auto 3.8 % (0-4.4); Hematocrit 39.8 % (42.0-52.0); Hemoglobin 12.6 g/dL (14.0-18.0); Immature Granulocyte Absolute 0.01 K/mm3 (0.00-0.031); Immature Granulocyte Percent A 0.2 % (0-0.5); Lymphocytes Percent Auto 32.2 % (18.3-44.2); Mean Corpuscular HGB Conc 31.7 g/dl (32-36); Mean Corpuscular Volume 85.2 fl (80-100); Mean Platelet Volume 10.3 fl (7.4-10.4); Monocytes Absolute Auto 0.6 K/mm3 (0.1-0.6); Monocytes Percent Auto 12.1 % (2.6-8.5); Neutrophils Absolute Auto 2.7 K/mm3 (1.3-6.7); Neutrophils Percent Auto 51.1 % (45.5-73.1); Platelet Count Result 283 k/mm3 (150-375); Red Blood Count 4.67 M/mm3 (4.6-6.20); Red Cell Distribution Width 14.8 % (11.5-14.5); White Blood Count 5.3 K/mm3 (4.5-10.0)
[2024-11-30 14:51] LABS: Add Urine Microscopic? YES; Appearance Urine Clear (Clear); Bacteria Urine None Seen /hpf; Bilirubin Urine Negative (Negative); Blood Urine Negative (Negative); Color Urine Yellow (Yellow); Glucose Urine UA Negative (Negative); Ketones Urine Negative (Negative); Leukocyte Esterase Ur Trace LEU/UL (Negative); Nitrate Urine Negative (Negative); Non Pathogenic Casts 0-2; Protein Urine Negative (Negative); RBC Urine 0-2 /hpf (0-2); Specific Grav Ur 1.011 (1.001-1.035); Squamous Epithelial Cell Urine None Seen /hpf (Few); Urobilinogen Urine 0.2 mg/dL (<2.0); pH Urine 7.5 (5.0-9.0)
--- OUTSIDE RECORDS SUMMARY | 2024-11-30 14:53 | XMS_ITS | Encounter Summary ---
Author Organization [facility] Healthcare Address [address] [place] [address] Care Team Providers Care Mold Maintenance Technician Name Role Phone Ann Marie Castillo RN Unavailable Unavailab Mary Ott MD Primary Care Provider Jossy Sanchez MD Unavailable Deion Armando MD Primary Care Provider Encounter Details Date Type Department Care Team (Late st Contact Info) Description 04/17/2022 Telephone [facility] Pain Center at [facility] [address] [facility] 1st [place] [address] Pricilla Ryan RN Social History Tobacco Use Types Packs/Day Years Used Date Smoking Tobacco: Never Smokeless Tobacco: Never Alcohol Use Standard Drinks/Week Comments Yes 0 (1 standard drink = 0.6 oz pur e alcohol) Occasionally. 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 Gender Identity Not on file Sexual Orientation [...] on filedocumented in this encounter Care Teams Mold Maintenance Technician Relationship Specialty Start Date End Date Mary Huston MD [address] [facility] [address] [place] [address] PCP - General 05/09/20 11/14/24 Deion Armando MD [address] [facility] [address] [place] [address] PCP - General Family Medicine 11/15/24 Ann Marie Castillo RN Registered Nurse 05/10/19 Jossy Sanchez MD [address] [facility] [place] [address] Consulting Physician Pain Management 02/05/22 documented as of this encounter
--- OUTSIDE RECORDS SUMMARY | 2024-11-30 14:53 | XMS_ITS | Encounter Summary ---
Author Organization [facility] Healthcare Address [address] [place] [address] Care Team Providers Care Ash Worker Name Role Phone Ann Marie Castillo RN Unavailable Unavailab Mary Ott MD Primary Care Provider Jossy Sanchez MD Unavailable Deion Armando MD Primary Care Provider Reason for Visit * Reason Onset Date Comments Med Refill 03/17/2021 Encounter Details Date Type Department Care Team (Late st Contact Info) Description 03/17/2021 Telephone [facility] [place] [facility] [address] [facility] [address] [place] [address] Jossy Sanchez MD [address] [facility] [address] [place] [address] Med Refill Social History Tobacco Use Types Packs/Day Years Used Date Smoking Tobacco: Never Smokeless Tobacco: Never Alcohol Use Standard Drinks/Week Comments Yes 0 (1 standard drink = 0.6 oz pur e alcohol) Occasionally. 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
--- OUTSIDE RECORDS SUMMARY | 2024-11-30 14:53 | XMS_ITS | Encounter Summary ---
Author Organization [facility] Healthcare Address [address] [place] [address] Care Team Providers Care Network Internship Name Role Phone XaviershyanneNathaniel DO Primary Care Provider [phone]- [phone] Ann Marie Castillo RN Unavailable Unavailab Mary Ott MD Primary Care Provider Mary Huston MD Primary Care Provider Jossy Sanchez MD Unavailable Deion Armando MD Primary Care Provider Reason for Visit * Reason Onset Date Comments Call Back 02/07/2019 Encounter Details Date Type Department Care Team (Late st Contact Info) Description 02/07/2019 Telephone [facility] [place] [facility] [address] [facility] [address] [place], [place] [phone] Jossy Sanchez MD [address] [facility] [address] [place], [place] [phone] Call Back Social History Tobacco Use Types Packs/Day Years Used Date Smoking Tobacco: Never Smokeless Tobacco: Never Alcohol Use Standard Drinks/Week Comments Yes 0 (1 standard drink = 0.6 oz pur e alcohol) Sex and Gender Information Value Date Recorded Sex Assigned at Not on file 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 Author CCM Chronic Pain Care Plan Chronic Care Management On track(2023 2:56 PM CDT) Jyoti Gonzales RN Note: Problem: Chronic Pain Goals: 1. Minimize further functional decline 2. Maximize quality of life 3. Control pain Strategies: - Activity/exercise program recommendation - Conservative stepwise pain medicine strategy with multi-disciplinary approach - Recommend healthy lifestyle strategies and compensatory methods as needed documented as of this encounter Visit Diagnoses Not on filedocumented in this encounter Care Teams Network Internship Relationship Specialty Start Date End Date Nathaniel Go DO [address] [place] [address] PCP - General 09/18/16 04/09/20 Mary Huston MD [address] [place] [address] PCP - General Family Medicine 04/10/20 05/08/20 Mary Huston MD [address] [place] [address] PCP - General 05/09/20 11/14/24 Deion Armando MD [address] [place] [address] PCP - General Family Medicine 11/15/24 Ann Marie Castillo RN Registered Nurse 05/10/19 Jossy Sanchez MD [address] [facility] [place] [place] [address] Consulting Physician Pain Management 02/05/22 documented as of this encounter
--- OUTSIDE RECORDS SUMMARY | 2024-11-30 14:53 | XMS_ITS | Clinical Summary ---
Author Organization [facility] Address [address] [place] [address] Care Team Providers Care Tellers Supervisor Name Role Phone Susana Alvaradoy Alize APRN-VACUUM METALIZING SUPERVISOR Unavailable Jess Rm MD Unavailable [phone] Jossy Sanchez MD Unavailable Mary Huston MD Primary Care Provider + Source Comments [facility],non-owned Affiliates and Associated Physician Practices is amultiple site organization consisting of ambulatory clinics and hospital sitesin [place], [place], [place] and [place]. This disclosure is being madepursuant to the Care Everywhere program and may not contain all information available regarding this patient. Last updated 18.[facility] Allergies Active Allergy Reactions Criticality Noted Date Comments Aspirin Unknown 06/03/2009 Sulfamethoxazole W-Trimethoprim Rash Low 04/03/2014 Latex Rash Low 05/09/2015 Medications * Be aware that medications may not be up to date on this document. Alwaysverify current medications with the patient. CENTRUM ULTRA MENS PO Take by mouth. Activ e Calcium-Vitamin D (OSCAL 500/200 D-3) 500 MG TABS Take by mouth. Act cristóbal Docusate Sodium (DOC-Q-LACE PO) Take 100 mg by mouth 2 times daily. Active ferrous sulfate (FEOSOL) 45 MG tablet Active vitamin D2 (ERGOCALCIFEROL ) 42649 UNIT capsule Take 1 Cap by mouth [...] once daily as needed 30 Tab 3 7 Active albuterol HFA (PROVENTIL;VENT CHRISTI;PROAIR) 108 (90 BASE) MCG/ACT inhaler Inhale 2 puffs by mouth every 6 hours as needed 1 Inhaler 2 8 Active ciprofloxacin 0.3% (CILOXAN) 0.3 % ophthalmic solution 1 drop every 2 hours 5 mL 8 Active Additional Information Patient not taking.Reported on 05/25/2019 baclofen (LIORESAL) 10 MG tablet 4 8 Active meloxicam (MOBIC) 15 MG tablet 0 8 Active diazePAM (VALIUM) 5 MG tablet 4 8 Active SANTYL 250 UNIT/GM ointment 2 8 Active doxycycline hyclate (VIBRAMYCIN) 100 MG tablet Take 1 tablet by mouth 2 times daily 20 tablet 9 Active furosemide (LASIX) 20 MG tablet TAKE ONE TABLET BY MOUTH ONCE DAILY NEEDED 30 tablet 2 0 Active TOVIAZ 8 MG tablet TAKE 1 TABLET BY MOUTH EVERY DAY 90 tablet 0 Active Active Problems Problem Noted Date Diagnosed [...] at Not on file Legal Sex Male 6:53 AM SUPERVISOR MAINTENANCE Gender Identity Not on file Sexual Orientation Not on file Last Filed Vital Signs Vital Sign Reading Time Taken Comments Blood Pressure 110/68 05/25/2019 1:33 PM CDT Pulse 95 05/25/2019 1:33 PM CDT Temperature 36.7 C (98.1 F) 05/25/2019 1:33 PM CDT Respiratory Rate 18 06/11/2015 8:59 AM SUPERVISOR MAINTENANCE Oxygen Saturation 92% 05/25/2019 1:3 3 PM [...] series) 1984 PNEUMOCOCCAL VACCINE 50+ (1 of 1 - PCV) 2015 ZOSTER VACCINE (1 of 2) 2015 COLON MONITORING 02/26/2020 02/25/2010, 02/25/2010 COLONOSCOPY - COLON CA SCREENING 02/26/2020 02/25/2010, 02/25/2010 Colorectal Cancer Screening 02/26/2020 SCREENING FOR DIABETES 04/19/2020 7, 10/22/2015, 06/11/2015, Additional history exists LIPID TESTING 10/21/2020 10/22/2015, 05/22/2011 COVID-19 VACCINE ( season) 2024 DEPRESSION SCREENING 08/02/2024 INFLUENZA VACCINE (Season Ended) 2025 HIB VACCINE Aged Out No longer eligi [...] Go DO LAB - POINT OF CARE ORDERABLE S Final Result * LIPID PROFILE W TCHOL/HDL (PO REF [...] 7:21 PM CDT Narrative Resulting Agency Comment [facility] [address] Wilber RAM [id number] Khanh Alvarado AVIATION ENGINEER-VACUUM METALIZING SUPERVISOR LAB - CHEMISTRY ORDERABLES Final Result [facility] INSURANCE BILL [address] [place] [address] * ENDOSCOPY, COLON, SCREENING (02/25/2010) Nathaniel Go DO GI PROCEDURE ORDERABLES Final Result from Last 3 Months or Most Recently Relevant to Health Maintenance Additional Health Concerns Infection Onset Date Last 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 MEDICARE [place] [id number] Care Teams Tellers Supervisor Relationship Specialty Start Date End Date Mary Huston MD [address] [place] [phone] PCP - General 09/15/21 Khanh Alvarado APRN-VACUUM METALIZING SUPERVISOR Nurse Practitioner 10/16/15 Jess Rm MD [address] [place] [address] Physical Medicine and Rehabilitation 05/25/19 Jossy Sanchez MD [address] [place] [address] Physical Medicine and Rehabilitation 05/25/19
--- OUTSIDE RECORDS SUMMARY | 2024-11-30 14:53 | XMS_ITS | Referral Summary ---
Author Organization [facility] Address [address] [place] [address] Care Team Providers Care Telegraphic Instrument Supervisor Name Role Phone Ann Mraie Castillo RN Unavailable Unavailab Jossy Aparicio MD Unavailable Deion Armando MD Primary Care Provider Encounters Date Type Department Care Team Description 11/15/2024 9:57 AM CDT - 11/15/2024 11:59 PM CDT Hospital Encounter [facility] [address] [address] Carlie Lucia, JONATHAN Other chronic pain (Primary Dx); Muscle spasm; Right hip pain Discharge Disposition: Discharge to home or self care 11/14/2024 Telephone [facility] [address] [address] Lupis Figueroa RN Refill from Last 3 Months Allergies Active Allergy Reactions Criticality Noted Date Comments Aspirin Shortness of breath, Other (See comments) High 07/16/2010 Sulfamethoxazole-Trimethop rim Rash Medium 11/07/2013 Latex Rash Medium 05/09/2015 Medications potassium chloride ER (KLOR-CON) 10 mEq CR tablet Take 1 tablet/capsule (10 mEq total) by mouth daily 7 Active iron, carbonyl (FEOSOL) 45 mg tabletIndicatio [...] (DETROL) 2 mg tablet 1 Active SantyL ointmentIndicat ions:Pressure injury of buttock, unstageable, unspecified laterality (HCC) APPLY TO AFFECTED AREA EVERY DAY 30 g 1 Active diazePAM (VALIUM) 5 mg tablet TAKE 1 TABLET BY MOUTH THREE TIMES A DAY NEEDED FOR MUSCLE SPASM 60 tablet 5 4 Active baclofen (LIORESAL) 20 mg tabletIndicatio ns:Muscle spasm 20 mg three times daily, 40 mg nightly 450 tablet 1 5 Active pregabalin (LYRICA) 200 mg capsule Take 1 capsule (200 mg total) by mouth 3 (three) times a day 90 capsule [address] (CYMBALTA) 30 mg capsule TAKE 1 CAPSULE BY MOUTH EVERY DAY 90 capsule 1 2 11/16/19 25 Discontin ued(Thera py completed ) pregabalin (LYRICA) 200 mg capsule TAKE 1 CAPSULE BY MOUTH THREE TIMES A DAY 90 capsule 2 5 11/16/19 25 Discontin ued(Reord er) baclofen (LIORESAL) 20 mg tabletIndicatio ns:Muscle spasm TAKE 1 AND 1/2 TABLETS BY MOUTH THREE TIMES DAILY 405 tablet 5 11/16/19 25 Discontin ued(Reord er) Active Problems Problem Noted Date Diagnosed Date [...] on file 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 Gender Identity Not on file Sexual Orientation Not on file Last Filed Vital Signs Vital Sign Reading Time Taken Comments Blood Pressure 103/67 11/15/2024 10:04 AM CDT Pulse 87 11/15/2024 10:04 AM CDT Temperature 36.7 C (98 F) 11/15/2024 10:04 AM CDT Respiratory Rate 16 11/15/2024 10:04 AM CDT Oxygen Saturation 96% 11/15/2024 10:04 AM CDT Inhaled Oxygen Concentration - - Weight [...] as needed Medical Devices Implanted Type Area Hand Polisher Device Identifier Shelf Expiration Date Model / Serial / Lot Rods Back Description:Back Insurance [facility] MEDICARE [facility] [place] [address] [facility] AETNA MEDICARE GOLD [facility] HEALTH[facility] Care Teams Telegraphic Instrument Supervisor Relationship Specialty Start Date End Date Deion Armando MD [address] [place] [address] PCP - General Family Medicine 11/15/24 Ann Marie Castillo, RN Registered Nurse 05/10/19 Jossy Sanchez MD [address] [facility] [place] [address] Consulting Physician Pain Management 02/05/22
--- OUTSIDE RECORDS SUMMARY | 2024-11-30 14:53 | XMS_ITS | Encounter Summary ---
Author Organization [facility] Healthcare Address [address] [place] [address] Care Team Providers Care Aba Therapist Name Role Phone LuisanabilaNathaniel DO Primary Care Provider [phone] Ann Marie Castillo RN Unavailable Unavailab Mary Ott MD Primary Care Provider Mary Huston MD Primary Care Provider Jossy Sanchez MD Unavailable Deion Armando MD Primary Care Provider Reason for Visit * Reason Onset Date Comments Prior Auth 01/12/2019 Methocarbamol Ap proved Encounter Details Date Type Department Care Team (Late st Contact Info) Description 01/12/2019 Telephone [facility] [place] [facility] [address] [facility] [address] [place] [address] Jossy Sanchez MD [address] [place] [address] Prior Auth (Methocarbamol Approved) Social History Tobacco Use Types Packs/Day Years Used Date Smoking Tobacco: Never Smokeless Tobacco: Never Alcohol Use Standard Drinks/Week Comments Yes 0 (1 standard drink = 0.6 oz pur e alcohol) Sex and Gender Information Value Date Recorded Sex Assigned at Not on file 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 LAN Gender Identity Not on file Sexual Orientation [...] on filedocumented in this encounter Care Teams Aba Therapist Relationship Specialty Start Date End Date Nathaniel Go DO [address] [place] [address] PCP - General 09/18/16 04/09/20 Mary Huston MD [address] [address] PCP - General Family Medicine 04/10/20 05/08/20 Mary Huston MD [address] [place] [address] PCP - General 05/09/20 11/14/24 Deion Armando MD [address] [place] [address] PCP - General Family Medicine 11/15/24 Ann Marie Castillo RN Registered Nurse 05/10/19 Jossy Sanchez MD [address] [facility] [place] [address] Consulting Physician Pain Management 02/05/22 documented as of this encounter
--- OUTSIDE RECORDS SUMMARY | 2024-11-30 14:53 | XMS_ITS | Clinical Summary ---
Author Organization [facility] Address [address] [place] [address] Care Team Providers Care Frame Polisher Name Role Phone Ann Marie Castillo RN Unavailable Unavailab Jossy Aparicio MD Unavailable Deion Armando MD Primary Care Provider Allergies Active Allergy Reactions Criticality Noted Date [...] 02/26/2010 Paraplegia 02/26/2010 Heterotopic calcification, postoperative 010 Encounters Date Type Department Care Team Description 11/15/2024 9:57 AM CDT - 11/15/2024 11:59 PM CDT Hospital Encounter [facility] [address] [place] [address] Carlie Lucia NP Other chronic pain (Primary Dx); Muscle spasm; Right hip pain Discharge Disposition: Discharge to home or self care 11/14/[address] 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 AETNA MEDICARE GOLD [facility] Care Teams Frame Polisher Relationship Specialty Start Date End Date Deion Armando MD [address] [place] [address] PCP - General Family Medicine 11/15/24 Ann Marie Csatillo, RN Registered Nurse 05/10/19 Jossy Sanchez MD [address] [facility] [facility] [place] [address] Consulting Physician Pain Management 02/05/22
[2024-11-30 15:05] LABS: Alanine Aminotransferase 20 U/L (6-50); Albumin Level 3.9 g/dL (3.5-5.1); Alkaline Phosphatase 87 U/L (38-126); Anion Gap 6 mmol/L (4-12); Aspartate Amino Transferase 23 U/L (17-59); Bilirubin,Total 0.3 mg/dL (0.2-1.3); Blood Urea Nitrogen 16 mg/dL (9-20); Calcium 9.1 mg/dL (8.4-10.2); Carbon Dioxide 31 mmol/L (22-30); Chloride 103 mmol/L (98-107); Estimated Glomerular Filt Rate > 60; Glucose 80 mg/dL (65-110); Potassium 3.9 mmol/L (3.4-5.0); Sodium 140 mmol/L (137-145)
[2024-12-05 12:48] LABS: Vitamin D 1,25 (OH)2 Total 18 pg/mL (18-72); Vitamin D2 1,25 (OH)2 <8 pg/mL; Vitamin D3 1,25 (OH)2 18 pg/mL
== END 2024-11-30 14:04 | disposition home or self-care (01) ==
PROVIDERS: PCP Family Medicine; Visit Provider Physician Assistant
DX: N39.0 Urinary tract infection, site not specified (principal); E55.9 Vitamin D deficiency, unspecified; D64.9 Anemia, unspecified; R60.9 Edema, unspecified; T30.0 Burn of unspecified body region, unspecified degree
CPT/HCPCS: 36415; 80053; 81001; 82652; 85025; 87086

== ENCOUNTER 2025-01-10 07:14 | Outpatient (RCR) | payer OTHER, SELFPAY ==
[2024-12-05 12:50] VITALS: BMI 30.4
--- NOTE | 2025-02-07 12:34 | PCWOUND ---
WOCN NOTE Patient Called to cancel appointment for today, states the wound is the size of a nickel and almost healed. He no longer needs wound care.
== END 2025-03-05 23:59 | disposition home or self-care (01) ==
LOC: ANHWOC 07:14
PROVIDERS: PCP Family Medicine; Visit Provider Physician Assistant
DX: S91.301A Unspecified open wound, right foot, initial encounter (principal); T30.0 Burn of unspecified body region, unspecified degree
CPT/HCPCS: 97602; 99213; G0463

== ENCOUNTER 2025-03-23 16:13 | Outpatient (CLI) | payer OTHER, SELFPAY ==
--- OUTSIDE RECORDS SUMMARY | 2025-03-23 16:16 | XMS_ITS | Clinical Summary ---
Author Organization [facility] Address [address] [place] [address] Care Team Providers Care Systems Project Manager Name Role Phone Susana Alvaradoy Alize APRN-SALES RECRUITMENT SPECIALIST Unavailable Jess Rm MD Unavailable [phone] Jossy Sanchez MD Unavailable Mary Huston MD Primary Care Provider + Source Comments [facility],non-owned Affiliates and Associated Physician Practices is amultiple site organization consisting of ambulatory clinics and hospital sitesin [place], [place], [place] and [place]. This disclosure is being madepursuant to the Care Everywhere program and may not contain all information available regarding this patient. 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 Gender Identity Not on file Sexual Orientation Not on file Last Filed Vital Signs Vital Sign Reading Time Taken Comments Blood Pressure 110/68 05/25/2019 1:33 PM CDT Pulse 95 05/25/2019 1:33 PM CDT Temperature 36.7 C (98.1 F) 05/25/2019 1:33 PM CDT Respiratory Rate 18 06/11/2015 8:59 AM WARD AIDE Oxygen Saturation 92% 05/25/2019 1:3 3 PM [...] LIPID TESTING 10/21/2020 10/22/2015, 05/22/2011 COVID-19 VACCINE (2023- season) 2024 DEPRESSION SCREENING 08/02/2024 INFLUENZA VACCINE (#1) 2025 HIB VACCINE Aged Out No longer [...] 7:21 PM CDT Narrative Resulting Agency Comment [facility] [address] Wilber RAM [id number] Khanh Alvarado AUTOMOBILE MECHANIC RADIATOR-SALES RECRUITMENT SPECIALIST LAB - CHEMISTRY ORDERABLES Final Result [facility] INSURANCE BILL [address] [place] [address] * ENDOSCOPY, COLON, SCREENING (02/25/2010) Nathaniel Go DO GI PROCEDURE ORDERABLES Final Result from Last 3 Months or Most Recently Relevant to Health Maintenance Additional Health Concerns Infection Onset Date Last 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
--- OUTSIDE RECORDS SUMMARY | 2025-03-23 16:16 | XMS_ITS | Encounter Summary ---
Author Organization [facility] Healthcare Address [address] [place] [address] Care Team Providers Care Agronomist Name Role Phone Ann Marie Castillo RN Unavailable Unavailab Mary Ott MD Primary Care Provider Jossy Sanchez MD Unavailable Deion Armando MD Primary Care Provider Reason for Visit * Reason Onset Date Comments Med Refill 03/17/2021 Encounter Details Date Type Department Care Team (Late st Contact Info) Description 03/17/2021 Telephone [facility] [place] [facility] [address] [facility] [address] [place] [address] Jossy Sanchez MD [address] [facility] [address] [place] [address] Med Refill Social History Tobacco Use Types Packs/Day Years Used Date Smoking Tobacco: Never Smokeless Tobacco: Never Alcohol Use Standard Drinks/Week Comments Yes 0 (1 standard drink = 0.6 oz pur e alcohol) Occasionally. 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
--- OUTSIDE RECORDS SUMMARY | 2025-03-23 16:16 | XMS_ITS | Encounter Summary ---
Author Organization [facility] Healthcare Address [address] [place] [address] Care Team Providers Care Aircraft Cabin Cleaner Name Role Phone XaviershyanneNathaniel DO Primary Care Provider [phone] Ann Marie Castillo RN Unavailable Unavailab Mary Ott MD Primary Care Provider Mary Huston MD Primary Care Provider Jossy Sanchez MD Unavailable [phone] Deion Armando MD Primary Care Provider Reason for Visit * Reason Onset Date Comments Call Back 02/07/2019 Encounter Details Date Type Department Care Team (Late st Contact Info) Description 02/07/2019 Telephone [facility] [place] [facility] [address] [facility] [address] [place], [place] [phone] Jossy Sanchez MD [address] [facility] [address] [address] [place], [place] [id number] Call Back Social History Tobacco Use Types Packs/Day Years Used Date Smoking Tobacco: Never Smokeless Tobacco: Never Alcohol Use Standard Drinks/Week Comments Yes 0 (1 standard drink = 0.6 oz pur e alcohol) Sex and Gender Information Value Date Recorded Sex Assigned at Not on file 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 Gender Identity Not on file Sexual Orientation [...] on filedocumented in this encounter Care Teams Aircraft Cabin Cleaner Relationship Specialty Start Date End Date Nathaniel Go DO [address] [place] [address] PCP - General 09/18/16 04/09/20 Mary Huston MD [address] [place] [address] PCP - General Family Medicine 04/10/20 05/08/20 Mary Hustno MD [address] [place] [address] PCP - General 05/09/20 11/14/24 Deion Armando MD [address] [place] [address] PCP - General Family Medicine 11/15/24 Ann Marie Castillo RN Registered Nurse 05/10/19 Jossy Sanchez MD [address] [facility] [facility] [place] [address] Consulting Physician Pain Management 02/05/22 documented as of this encounter
--- OUTSIDE RECORDS SUMMARY | 2025-03-23 16:16 | XMS_ITS | Encounter Summary ---
Author Organization [facility] Healthcare Address [address] [place] [address] Care Team Providers Care Carpenters Name Role Phone LuisanabilaNathaniel DO Primary Care Provider [phone] Ann Marie Castillo RN Unavailable Unavailab Mary Ott MD Primary Care Provider Mary Huston MD Primary Care Provider Jossy Sanchez MD Unavailable Deion Armando MD Primary Care Provider Reason for Visit * Reason Onset Date Comments Prior Auth 01/12/2019 Methocarbamol Ap proved Encounter Details Date Type Department Care Team (Late st Contact Info) Description 01/12/2019 Telephone [facility] [place] [facility] [address] [facility] [address] [place] [address] Jossy Sanchez MD [address] [place] [address] Prior Auth (Methocarbamol Approved) Social History Tobacco Use Types Packs/Day Years Used Date Smoking Tobacco: Never Smokeless Tobacco: Never Alcohol Use Standard Drinks/Week Comments Yes 0 (1 standard drink = 0.6 oz pur e alcohol) Sex and Gender Information Value Date Recorded Sex Assigned at Not on file 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 Gender Identity Not on file Sexual Orientation [...] on filedocumented in this encounter Care Teams Carpenters Relationship Specialty Start Date End Date Nathaniel Go DO [address] [place] [address] PCP - General 09/18/16 04/09/20 Mary Huston MD [address] [address] PCP - General Family Medicine 04/10/20 05/08/20 Mary Huston MD [address] [place] [address] PCP - General 05/09/20 11/14/24 Dieon Armando MD [address] [place] [address] PCP - General Family Medicine 11/15/24 Ann Marie Castillo RN Registered Nurse 05/10/19 Jossy Sanchez MD [address] [facility] [place] [address] Consulting Physician Pain Management 02/05/22 documented as of this encounter
--- OUTSIDE RECORDS SUMMARY | 2025-03-23 16:16 | XMS_ITS | Clinical Summary ---
Author Organization [facility] Address [address] [place] [address] Care Team Providers Care Estimator Project Manager Name Role Phone Ann Marie Castillo RN [...] AREA EVERY DAY 30 g 1 Active baclofen (LIORESAL) 20 mg tabletIndication s:Muscle spasm 20 mg three times daily, 40 mg nightly 450 tablet 1 5 Active diazePAM (VALIUM) 5 mg tablet TAKE 1 TABLET BY MOUTH THREE TIMES A DAY NEEDED FOR MUSCLE SPASM 60 tablet 5 5 Active pregabalin (LYRICA) 200 mg capsule TAKE 1 CAPSULE BY MOUTH 3 TIMES A DAY. 90 capsule 2 5 05/08/20 25 Active Active Problems Problem Noted Date Diagnosed [...] Encounters Date Type Department Care Team Description 03/20/2025 4:00 PM CDT Therapy [facility] Medicine Physical Therapy [address] [facility] [address] [place] [address] Ann Marie Curry, ТАТЬЯНА Paraplegia (Primary Dx) 02/27/2025 Telephone [facility] Medicine Orthopaedic Surgery [address] [facility] [address] [place] [address] [place] [phone] Jess Rm MD 02/27/2025 Orders Only [facility] Medicine Orthopaedic Surgery [address] [facility] [address]th [place] [address] [place] [phone] Jess Rm MD Paraplegia (HCC) (Primary Dx); Impaired mobility and ADLs 02/14/2025 2:30 PM CDT Office Visit [facility] Orthopaedic Surgery [address] [facility] [address]th [place] [address] [place] [id number] Jess Rm MD Paraplegia (HCC) (Primary Dx); Spasticity; Neurogenic bladder; Neurogenic bowel; Neuropathic pain; Vitamin D deficiency; Impaired mobility and ADLs; 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; 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, initial encounter ([facility]) 01/31/2025 Telephone [facility] Orthopaedic Surgery [address] [facility] [address]th [place] [address] [place] [phone] Jess Rm MD from Last 3 Months Surgical History Surgery Date Site/Laterality Comments ARTHRODESIS Arthrodesis Thoracic - (Added by TW Conv) BACK SURGERY FEMUR FRACTURE SURGERY Medical History Medical History Date Comments Paraplegia Paraplegia [employer] spinal cord injury - (Added by TW [...] on file 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 Gender Identity Not on file Sexual Orientation Not on file Obstetrics History Last Filed Vital Signs Vital Sign Reading Time Taken Comments Blood Pressure 111/70 02/14/2025 2:57 PM CDT Pulse 92 02/14/2025 2:57 PM CDT Temperature 36.7 C (98 F) 11/15/2024 10:04 AM CDT Respiratory Rate 18 02/14/2025 2:57 PM CDT Oxygen Saturation 96% 11/15/2024 10:04 AM CDT Inhaled Oxygen Concentration - - Weight 112.5 kg (248 lb) 02/14/2025 2:57 PM CDT Height 188 cm (6' 2) 02/14/2025 2:57 PM CDT Body Mass Index 31.84 02/14/2025 2:57 PM CDT Plan of Treatment Health Maintenance Due Date Last Done Comments Colon Cancer Screening-Colonoscopy 1965 Depression Screening 1965 Hepatitis C Screening 1965 Prostate Cancer Screening-PSA 1965 DTaP/Tdap/Td Vaccine (1 - Tdap) 1976 Hepatitis B Screening 1983 Regular Well Visit/Exam 18-64 1983 Pneumococcal vaccine <65 (1 of 2 - PCV) 1984 Zoster Vaccine (1 of 2) 2015 Influenza Vaccine (#1) 2025 Goals Goal Patient Goal Type Associated [...] as needed Medical Devices Implanted Type Area Showroom Manager Device Identifier Shelf Expiration Date Model / Serial / Lot Rods Back Description:Back Insurance [facility] MEDICARE [facility] AETNA MEDICARE GOLD [facility] Care Teams Estimator Project Manager Relationship Specialty Start Date End Date Deion Armando MD [address] [place], [place] [address], [place] [address] PCP - General Family Medicine 11/15/24 Ann Marie Castillo, RN Registered Nurse 05/10/19 Jossy Sanchez MD [address] [facility] [place] [address] Consulting Physician Pain Management 02/05/22
--- OUTSIDE RECORDS SUMMARY | 2025-03-23 16:16 | XMS_ITS | Encounter Summary ---
Author Organization [facility] Address [address] [place] [address] Care Team Providers Care Corporate Job Titles Name Role Phone Ann Marie Castillo RN Unavailable Unavailab Mary Ott MD Primary Care Provider Jossy Sanchez MD Unavailable Deion Armando MD Primary Care Provider Encounter Details Date Type Department Care Team (Late st Contact Info) Description 04/17/2022 Telephone [facility] [address] [facility] 1st [place] [address] Pricilla Ryan RN Social History Tobacco Use Types Packs/Day Years Used Date Smoking Tobacco: Never Smokeless Tobacco: Never Alcohol Use Standard Drinks/Week Comments Yes 0 (1 standard drink = 0.6 oz pur e alcohol) Occasionally. 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 Gender Identity Not on file Sexual Orientation [...] on filedocumented in this encounter Care Teams Corporate Job Titles Relationship Specialty Start Date End Date Mary Huston MD [address] [facility] [address] [place] [address] PCP - General 05/09/20 11/14/24 Deion Armando MD [address] [facility] [address] [place] [address] PCP - General Family Medicine 11/15/24 Ann Marie Castillo RN Registered Nurse 05/10/19 Jossy Sanchez MD [address] [facility] [place] [address] Consulting Physician Pain Management 02/05/22 documented as of this encounter
[2025-03-23 16:52] LABS: Add Urine Microscopic? YES; Appearance Urine Cloudy (Clear); Glucose Urine UA Negative (Negative); Leukocyte Esterase Ur 2+ LEU/UL (Negative); Nitrate Urine Negative (Negative); Non Pathogenic Casts 0-2; Specific Grav Ur 1.020 (1.001-1.035)
== END 2025-03-23 16:14 | disposition home or self-care (01) ==
PROVIDERS: PCP Family Medicine; Visit Provider Physician Assistant Medical
DX: R30.0 Dysuria (principal); R39.15 Urgency of urination
CPT/HCPCS: 81001; 87086